=== PATIENT | male | born 1955 | race African-American/Black ===

== ENCOUNTER 2018-12-08 11:23 | Inpatient (IN) | payer BC, OTHER ==
[2018-12-08 11:59] LABS: BASO % 0.9 % (0-2.0); EOS % 1.8 % (0-4.5); HEMATOCRIT 37.5 % (35.4-49); HEMOGLOBIN 12.4 GM/dL (11.7-16.9); LYMPH % 23.1 % (8-40); MCH 29.3 pg (25.7-33.7); MCHC 33.2 g/dl (32.0-35.9); MEAN CELL VOLUME 88.2 fl (80-96); MEAN PLT VOLUME 7.6 fl (7.5-11.1); MONO % 7.1 % (3.8-10.2); NEUT % 67.1 % (42.8-82.8); PLATELET COUNT 308 K/MM3 (134-434); RBC 4.25 M/mm3 (4.00-5.60); RDW 15.7 % (11.9-15.9); WHITE BLOOD COUNT 5.6 K/mm3 (4.0-10.0)
--- NOTE | 2018-12-08 12:01 | PDOC ---
History of Present Illness - General Chief Complaint: CVA/TIA Stated Complaint: LT HAND NUMBNESS Time Seen by Provider: 12/08/18 11:42 - History of Present Illness Initial Comments: 12/08/18 11:53 63 yo M with h/o HTN, HLD who p/w right hand tingling. Patient reports acute onset of left hand tingling (12/07/18) when driving car. Denies h/o similar presentation. Denies weakness in ext. No other complaints. Compliant with home medications. Patient denies DELONG, vision change, palpitations, cough, wheezing, orthopena, PND , leg swelling/pain, N/V, F,C, CP, SOB, urinary complaints, hematuria, BPR, abdominal pain, diarrhea, constipation, lightheadedness, weakness. PMHx: as noted above ROS: as noted SHx: Denies Etoh, IVDA, tobacco use Allergies: NKDA Past History - Past Medical History Allergies/Adverse Reactions: Allergies Allergy/AdvReac Type Severity Reaction Status Date / Time No Known Allergies Allergy Verified 12/08/18 11:25 Home Medications: Ambulatory Orders Atorvastatin Ca [Lipitor] 10 mg PO HS 12/08/18 Furosemide [Lasix] 20 mg PO DAILY 12/08/18 Metoprolol Succinate 200 mg PO DAILY 12/08/18 Nifedipine [Nifedipine ER] 60 mg PO DAILY 12/08/18 COPD: No HTN: Yes Hypercholesterolemia: Yes Other medical history: on lasix for edema BLE - Immunization History Immunization Up to Date: Yes - Suicide/Smoking/Psychosocial Hx Smoking History: Never smoked Hx Alcohol Use: No Drug/Substance Use Hx: No Review of Systems - Review of Systems Comments:: 12/08/18 11:55 GENERAL/CONSTITUTIONAL: No fever or chills. No weakness. HEAD, EYES, EARS, NOSE AND THROAT: No change in vision. No ear pain or discharge. No sore throat. CARDIOVASCULAR: No chest pain or shortness of breath RESPIRATORY: No cough, wheezing, or hemoptysis. GASTROINTESTINAL: No nausea, vomiting, diarrhea or constipation. GENITOURINARY: No dysuria, frequency, or change in urination. MUSCULOSKELETAL: hand tingling. No joint or muscle swelling or pain. No neck or back pain. SKIN: No rash NEUROLOGIC:+ Change in sensation of left hand. No headache, vertigo, loss of consciousness. ENDOCRINE: No increased thirst. No abnormal weight change HEMATOLOGIC/LYMPHATIC: No anemia, easy bleeding, or history of blood clots. ALLERGIC/IMMUNOLOGIC: No hives or skin allergy. *Physical Exam - Vital Signs Last Vital Signs Temp Pulse Resp BP Pulse Ox 98.4 F 77 18 218/108 H 98 12/08/18 11:25 12/08/18 11:25 12/08/18 11:25 12/08/18 11:25 12/08/18 11:25 - Physical Exam Comments: 12/08/18 11:55 GENERAL: Awake, alert, and fully oriented, in no acute distress HEAD: No signs of trauma, normocephalic, atraumatic EYES: PERRLA, EOMI, sclera anicteric, conjunctiva clear ENT: Auricles normal inspection, hearing grossly normal, nares patent, oropharynx clear without exudates. Moist mucosa NECK: Normal ROM, supple, no lymphadenopathy, JVD, or masses LUNGS: No distress, speaks full sentences, clear to auscultation bilaterally HEART: Regular rate and rhythm, normal S1 and S2, no murmurs, rubs or gallops, peripheral pulses normal and equal bilaterally. ABDOMEN: Soft, nontender, normoactive bowel sounds. No guarding, no rebound. No masses EXTREMITIES : Normal inspection, Normal range of motion, no edema. No clubbing or cyanosis NEUROLOGICAL: Cranial nerves II through XII grossly intact. Normal speech, normal gait, no focal sensorimotor deficits. absent dysmetria on FTN. Nml KWABENA. Neg nystagmus. SKIN: Warm, Dry, normal turgor, no rashes or lesions noted NIH Stroke Scale - Last Known Well Date/Time & Onset Date Last Known Well: 12/08/18 Time Last Known Well: 09:00 - Initial Evaluation Level of consciousness: Alert Ask patient the month and their age: Answers both correctly Ask patient to open & close eyes; make fist and let go: Obeys both correctly Best gaze (horizontal eye movement): Normal Visual field testing: No visual field loss Facial paresis (Show teeth/raise eyebrows/close eyes tight): Normal symmetrical movement Motor Function: Left Arm: Normal Motor Function: Right Arm: Normal (extends arm 90 (or 45) degrees for 10 seconds without drift Motor Function: Left Leg: Normal (extends leg 30 degrees for 5 seconds without drift) Motor Function: Right Leg: Normal (extends leg 30 degrees for 5 seconds without drift) Limb Ataxia: No ataxia Sensory(Use pinprick test arms,legs,trunk,face/side to side): Normal Best language (Describe picture, name items, read sentences): No Aphasia Dysarthria (read several words): Normal articulation Extinction and Inattention: No abnormality - Total Score NIH Stroke Scale Score: 0 tPA Exclusion checklist 3-4.5h - Time Elapsed Date last known well: 12/07/18 Time last known well: 09:00 Elaspsed time: 6 Day(s) and 10 Hour(s) and 12 Minutes - Thrombolytic Therapy Candidate Is patient eligible for thrombolytic therapy: No - Exclusion Criteria 3-4.5 hr SBP greater than 185 or DBP greater than 110mmHg despite tx: Yes Recent IC/spinal surgery,head trauma or stroke<3mos.: No Hx IC hemorrhage, IC neoplasm, AV malformation or aneurysm: No Active internal bleeding: No Blding diathesis(low plt ct, inc PTT,INR>1.7 or use of NOAC): No Symptoms suggest subarachnoid hemorrhage: No CT demonstrates multilobar infarct(>1/3 cerebral hemiphere): No Arterial puncture at noncompressible site in previous 7 days: No Blood glucose concentration less than 50mg/dL (2.7mmol/L): No - Relative Exclusion Criteria 3-4.5 hr Life expectancy <1 yr or severe co-morbid illness: No : No Patient/family refused: No Rapid improvement: No Stroke severity too mild: No Recent acute W[place] (w/in previous 3 months): No Seizure at onset with postictal residual neuro impairments: No Major surgery or serious trauma w/in previous 14 days: No Recent GI or hemorrhage (w/in previous 21 days): No - Add'l Relative Exclusion 3-4.5 hr Age > 80: No Hx of both diabetes AND prior ischemic stroke: No Taking an oral anticoagulant regardless of INR: No NIHSS >25: No - Ineligibility reason(s) Reasons No tPA given: See reason(s) noted above Critical Care Time/MDM Note - Medical Decision Making Note: 12/08/18 11:56 63 yo M with h/o HTN, HLD who p/w left hand tingling in 2nd-3rd palmar digits. BP 218/108, vitals otherwise wnl, AF, A&OX3. Physcial exam unremarkable. Patient LUE neurovascularly intact. Numbness in median nerve distribution. R/o CVA. Low suspicion PAD. Ed Course: 12/08/18 12:47 Laboratory Tests 12/08/18 12/08/18 12/08/18 11:49 11:49 11:56 WBC 5.6 Hgb 12.4 Hct 37.5 Plt Count 308 Sodium 138 Potassium 5.9 H BUN 37.3 H Creatinine 4.4 H Est GFR (CKD-EPI)AfAm 15.52 Random Glucose 125 H Troponin I < 0.02 Urine Color Yellow Urine Protein 3+ H Urine Nitrite Negative Ur Leukocyte Esterase Negative 12/08/18 12:48 EKG with 1st degree AV block, CT 224, intervals otherwise wnl, nml axis. Neg HAYLEY , STD. 12/08/18 12:49 Labetalol 20 mg, Calcium Glu 1000 mg, Insulin 5 U, D50 25 mg 12/08/18 12:[address] Norris answering service. Awiaitng call back 12/08/18 13:[address] Norris. 12/08/18 13:27 Dr. sheldon admits to Dr. Castellaon/Darian Contacted Dr. Farmer answering service. Awaiting call back. 12/08/18 13:[address] Callaway. Admitted to tele. *DC/Admit/Observation/Transfer Diagnosis at time of Disposition: Numbness and tingling in left hand, Hypertensive emergency Acute kidney failure Qualifiers: Acute renal failure type: unspecified Qualified Code(s): N17.9 - Acute kidney failure, unspecified - Discharge Dispostion Condition at time of disposition: Stable Decision to Admit order: Yes - Referrals - Patient Instructions - Post Discharge Activity
[2018-12-08 12:14] LABS: INR 1.05 (0.83-1.09); PROTHROMBIN TIME (PATIENT) 12.4 SEC (9.7-13.0)
[2018-12-08 12:16] LABS: EPI CELLS 2.9 /HPF (0-5/HPF); HYALINE CASTS 6 /lpf (0-8); URINE APPEARANCE CLEAR; URINE BACTERIA 0.8 /hpf (NEGATIVE); URINE BILIRUBIN NEGATIVE (NEGATIVE); URINE COLOR YELLOW; URINE GLUCOSE (UA) NEGATIVE (NEGATIVE); URINE KETONE NEGATIVE (NEGATIVE); URINE LEUK ESTERASE NEGATIVE (NEGATIVE); URINE NITRITE NEGATIVE (NEGATIVE); URINE PROTEIN 3+ (NEGATIVE); URINE RBC 2 /hpf (0-4); URINE UROBILINOGEN 0.2 mg/dL (0.2-1.0); URINE WBC 4 /hpf (0-5)
[2018-12-08 12:28] LABS: ALBUMIN 3.6 g/dl (3.4-5.0); ALK PHOS 97 U/L (45-117); ANION GAP 4 MMOL/L (8-16); BILIRUBIN,TOTAL 0.4 mg/dL (0.2-1); BLOOD UREA NITROGEN 37.3 mg/dL (7-18); CALCIUM 9.7 mg/dL (8.5-10.1); CHLORIDE 113 mmol/L (98-107); CO2 21 mmol/L (21-32); CREATININE 4.4 mg/dL (0.55-1.3); GLUCOSE,RANDOM 125 mg/dL (74-106); POTASSIUM 5.9 mmol/L (3.5-5.1); SGOT/AST 31 U/L (15-37); SGPT/ALT 22 U/L (13-61); SODIUM 138 mmol/L (136-145); TOT PROT 8.2 g/dl (6.4-8.2)
[2018-12-08] MEDS ORDERED: LABETALOL HCL 5 MG/1 ML (100MG/20 ML VIAL) IVPUSH ONE (12:43)
[2018-12-08] MEDS ORDERED: DEXTROSE 50%-WATER - 25 GM/50 ML VIAL IVPUSH ONE (12:44)
[2018-12-08] MEDS ORDERED: CALCIUM GLUCONATE 10% - 1,000 MG/10 ML VIAL IVPUSH ONE (12:44)
[2018-12-08] MEDS ORDERED: INSULIN REGULAR HUMAN 100 UNITS/ML *VIAL IVPUSH ONE (12:44)
[2018-12-08] MEDS ORDERED: DEXTROSE 50%-WATER 25 GM/50 ML DISP.SYRIN ONE (13:10)
[2018-12-08] MEDS ORDERED: CALCIUM GLUCONATE 10% - 1,000 MG/10 ML VIAL ONE (13:10)
[2018-12-08] MEDS ORDERED: LABETALOL HCL 5 MG/1 ML (200MG/40ML VIAL) IVPB ONE (13:11)
--- NOTE | 2018-12-08 13:22 | PDOC ---
Attending Attestation - Resident Resident Name: Pancho Larson - ED Attending Attestation I have performed the following: I have examined & evaluated the patient, The case was reviewed & discussed with the resident, I agree w/resident's findings & plan, Exceptions are as noted - HPI HPI: 12/08/18 12:55 63 M with h/o HTN, HLD presenting to ED with L hand tingling. Pt states that since yesterday, he has had numbness/tingling in his L 2nd and 3rd digits. Denies any weakness. Denies numbness/weakness in any other extremity. Pt denies dizziness. Denies slurred speech. Pt hypertensive to 218/108 in ED. Pt states he is compliant with all his meds. Denies CP/SOB. Denies DELONG/N/V. - Physicial Exam PE: 12/08/18 13:23 "GENERAL: Awake, alert, and fully oriented, in no acute distress. HEAD: No signs of trauma EYES: PERRLA, EOMI, sclera anicteric, conjunctiva clear ENT: Auricles normal inspection, hearing grossly normal, nares patent, oropharynx clear without exudates. Moist mucosa NECK: Nontender, no stepoffs, Normal ROM, supple, no lymphadenopathy, JVD, or masses LUNGS: Breath sounds equal, clear to auscultation bilaterally. No wheezes, and no crackles HEART: Regular rate and rhythm, normal S1 and S2, no murmurs, rubs or gallops ABDOMEN: Soft, nontender, normoactive bowel sounds. No guarding, no rebound. No masses EXTREMITIES: Normal range of motion, no edema. No clubbing or cyanosis. No cords, erythema, or tenderness NEUROLOGICAL: Cranial nerves II through XII intact. 5/5 strength and sensation in all extremities, Normal speech, normal gait, normal cerebellar function SKIN: Warm, Dry, normal turgor, no rashes or lesions noted. - Critical Care Time Total Critical Care Time: 60 Critical Care Statement: The care of this patient involved high complexity decision making to prevent further life threatening deterioration of the patient 's condition and/or to evaluate & treat vital organ system(s) failure or risk of failure. - Medical Decision Making 12/08/18 13:23 63 M with L hand paresthesia. NIHSS 0 at this time. Vitals notable for HTN in ED. Pt states he is compliant with his meds. No DELONG, no CP/SOB. Will r/o end organ damage. - Labs, trop - CT head - Labetalol IV for BP control 12/08/18 13:23 Cr 4.4, pt reports no h/o renal insufficiency K 5.9 Will give Ca, insulin/gluc Consult renal
[2018-12-08] MEDS ORDERED: NIFEdipine E.R 60 MG TABLET (UD) PO SCH (14:00)
--- NOTE | 2018-12-08 14:08 | CON.NEP ---
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 Patient reports acute onset of left hand tingling (04/26) when driving car. found to have BP 218/108 also K 5.9 and s creatinine 4.4 he was told he has kidney disease and was referred to nephrolog 2 weeks ago has h/o of not well controlled BP no sob, no chest pain, leg edema sometimes no foamy urine - Alcohol/Substance Use Hx Alcohol Use: No - Smoking History Smoking history: Never smoked Home Medications - Allergies Allergies/Adverse Reactions: Allergies Allergy/AdvReac Type Severity Reaction Status Date / Time No Known Allergies Allergy Verified 12/08/18 11:25 - Home Medications Home Medications: Ambulatory Orders Atorvastatin Ca [Lipitor] 10 mg PO HS 12/08/18 Furosemide [Lasix] 20 mg PO DAILY 12/08/18 Metoprolol Succinate 200 mg PO DAILY 12/08/18 Nifedipine [Nifedipine ER] 60 mg PO DAILY 12/08/18 Nephrology Consult - Height Height: 5 ft 9 in - Weight Weight: 246 lb - BMI Body Mass Index (BMI): 36.3 - Lab Results CBC,BMP: CBC, BMP 12/08/18 11:49 12/08/18 11:49 Anion Gap: Anion Gap Anion Gap 4 MMOL/L (8-16) L 12/08/18 11:49 - Physical Examination Vital Signs: Vital Signs Temperature 98.4 F 12/08/18 11:25 Pulse Rate 71 12/08/18 13:22 Respiratory Rate 18 12/08/18 13:22 Blood Pressure 173/99 H 12/08/18 13:22 O2 Sat by Pulse Oximetry (%) 98 12/08/18 13:22 Assessment/Plan CBC, BMP 12/08/18 11:49 12/08/18 11:49 1-HTN urgency 2-Advanced Kidney Failure unclear if acute of chronic he has chronic kidney disease history and h/o uncontrolled BP proteinuria noted on u/a may be from high BP 3-Hyperkalemia Plan- renal and bladder sono r/o post renal factors and to check kidney size treat hyperkalemia follow bmo daily urine protein creatinine ratio
--- NOTE | 2018-12-08 14:44 | HP ---
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 Cardiovascular: Yes: HTN, Hyperlipdemia Pulmonary: No: Asthma Gastrointestinal: No: GI Bleed - Smoking History Smoking history: Never smoked - Alcohol/Substance Use Hx Alcohol Use: No Home Medications - Allergies Allergies/Adverse Reactions: Allergies Allergy/AdvReac Type Severity Reaction Status Date / Time No Known Allergies Allergy Verified 12/08/18 11:25 - Home Medications Home Medications: Ambulatory Orders Atorvastatin Ca [Lipitor] 10 mg PO HS 12/08/18 Furosemide [Lasix] 20 mg PO DAILY 12/08/18 Metoprolol Succinate 200 mg PO DAILY 12/08/18 Nifedipine [Nifedipine ER] 60 mg PO DAILY 12/08/18 Review of Systems - Review of Systems Cardiovascular: denies: Chest Pain, Edema Respiratory: denies: SOB Gastrointestinal: denies: Abdominal Pain Genitourinary: reports: No Symptoms Musculoskeletal: reports: Muscle Weakness Neurological: reports: Parasthesia (RIGHT HAND), Weakness (RT ARM). 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) Labs: CBC, BMP 12/08/18 11:49 12/08/18 11:49 Imaging - Results Cat Scan: Report Reviewed Problem List - Problems (1) Hypertensive emergency Assessment/Plan: LABETOLOL 200 TID PROCARDIA 60 CARDIO CONSULT Code(s): I16.1 - HYPERTENSIVE EMERGENCY (2) Numbness and tingling in left hand Assessment/Plan: R/O CVA MRI CAROTID ASA NEURO Code(s): R20.0 - ANESTHESIA OF SKIN; R20.2 - PARESTHESIA OF SKIN (3) Acute kidney failure Assessment/Plan: CHECK BASELINE RENAL US FOLLOW LABS Code(s): N17.9 - ACUTE KIDNEY FAILURE, UNSPECIFIED Qualifiers: Acute renal failure type: unspecified Qualified Code(s): N17.9 - Acute kidney failure, unspecified
[2018-12-08] MEDS ORDERED: LABETALOL HCL 100 MG TABLET (FP) ONE (14:59)
[2018-12-08] MEDS ORDERED: NIFEdipine E.R. 30 MG TABLET (FP) ONE (14:59)
[2018-12-08] MEDS: LABETALOL HCL 200 MG TABLET (FP) PO SCH ×2 (15:01→21:05)
[2018-12-08] MEDS ORDERED: ASPIRIN 325 MG ENTERIC COATED TABLET (FP) PO ONE (15:08)
[2018-12-08] MEDS ORDERED: ASPIRIN 325 MG ENTERIC COATED TABLET (FP) ONE (16:35)
[2018-12-08] MEDS: ATORVASTATIN CA 40 MG TABLET (FP) PO SCH (21:05)
[2018-12-08] MEDS: HEPARIN NA (PORCINE) 5,000 UNITS/ML 1ML VIAL SQ SCH (21:05)
[2018-12-08] MEDS ORDERED: ATORVASTATIN CA 10 MG TABLET (FP) PO SCH (22:00)
[2018-12-08 23:33] VITALS: BMI 35.4
[2018-12-09] MEDS: LABETALOL HCL 200 MG TABLET (FP) PO SCH ×3 (05:44→21:04)
[2018-12-09 07:48] LABS: BASO % 0.5 % (0-2.0); EOS % 2.4 % (0-4.5); HEMATOCRIT 33.9 % (35.4-49); HEMOGLOBIN 11.1 GM/dL (11.7-16.9); LYMPH % 31.5 % (8-40); MCHC 32.8 g/dl (32.0-35.9); MEAN CELL VOLUME 88.4 fl (80-96); MEAN PLT VOLUME 7.6 fl (7.5-11.1); MONO % 8.1 % (3.8-10.2); NEUT % 57.5 % (42.8-82.8); PLATELET COUNT 262 K/MM3 (134-434); RBC 3.83 M/mm3 (4.00-5.60); RDW 15.4 % (11.9-15.9); WHITE BLOOD COUNT 5.2 K/mm3 (4.0-10.0)
[2018-12-09 07:57] LABS: ALBUMIN 3.2 g/dl (3.4-5.0); ALK PHOS 83 U/L (45-117); ANION GAP 7 MMOL/L (8-16); BILIRUBIN,TOTAL 0.3 mg/dL (0.2-1); BLOOD UREA NITROGEN 39.5 mg/dL (7-18); CALCIUM 9.3 mg/dL (8.5-10.1); CHLORIDE 113 mmol/L (98-107); CO2 21 mmol/L (21-32); CREATININE 4.4 mg/dL (0.55-1.3); GLUCOSE,RANDOM 93 mg/dL (74-106); MAGNESIUM 2.2 mg/dL (1.8-2.4); PHOSPHOROUS 3.6 mg/dL (2.5-4.9); SGOT/AST 12 U/L (15-37); SGPT/ALT 17 U/L (13-61); SODIUM 141 mmol/L (136-145); TOT PROT 6.8 g/dl (6.4-8.2)
--- NOTE | 2018-12-09 08:27 | PN ---
Progress Note, Physician - Current Medication List Current Medications: Active Medications Aspirin (Ecotrin -) 81 mg PO DAILY [facility] Atorvastatin Calcium (Lipitor -) 40 mg PO HS [facility] Last Admin: 12/08/18 21:05 Dose: 40 mg Heparin Sodium (Porcine) (Heparin -) 5,000 unit SQ BID [facility] Last Admin: 12/08/18 21:05 Dose: 5,000 unit Labetalol HCl (Normodyne -) 200 mg PO TID [facility] Last Admin: 12/09/18 05:44 Dose: 200 mg Nifedipine (Procardia Xl -) 60 mg PO DAILY [facility] Last Admin: 12/08/18 15:01 Dose: 60 mg - Objective Vital Signs: Vital Signs Temperature 97.9 F 12/09/18 05:46 Pulse Rate 62 12/09/18 05:46 Respiratory Rate 16 12/09/18 05:46 Blood Pressure 179/99 H 12/09/18 05:46 O2 Sat by Pulse Oximetry (%) 98 12/08/18 21:00 Cardiovascular: Yes: Regular Rate and Rhythm Respiratory: Yes: Regular, CTA Bilaterally Gastrointestinal: Yes: Normal Bowel Sounds, Soft Neurological: Yes: Alert, Oriented, Weakness (OF RIGHT UE IMPROVED) Labs: CBC, BMP 12/09/18 06:16 12/09/18 06:00 INR, PTT INR 1.05 (0.83-1.09) 12/08/18 11:49 Problem List - Problems (1) Hypertensive emergency Assessment/Plan: LABETOLOL 200 TID PROCARDIA 60--TO 90 ADD HYDRALAZINE 25 BID CARDIO CONSULT Code(s): I16.1 - HYPERTENSIVE EMERGENCY (2) Numbness and tingling in left hand Assessment/Plan: R/O CVA MRI PENDING CAROTID ASA NEURO Code(s): R20.0 - ANESTHESIA OF SKIN; R20.2 - PARESTHESIA OF SKIN (3) Acute kidney failure Assessment/Plan: CHECK BASELINE RENAL US FOLLOW LABS Code(s): N17.9 - ACUTE KIDNEY FAILURE, UNSPECIFIED Qualifiers: Acute renal failure type: unspecified Qualified Code(s): N17.9 - Acute kidney failure, unspecified
[2018-12-09] MEDS: hydrALAZINE HCL 25 MG TABLET (FP) PO SCH ×2 (09:06→21:04)
[2018-12-09] MEDS: ASPIRIN COATED 81 MG TABLET.EC PO SCH (09:07)
[2018-12-09] MEDS: HEPARIN NA (PORCINE) 5,000 UNITS/ML 1ML VIAL SQ SCH ×2 (09:08→21:04)
[2018-12-09] MEDS: NIFEdipine E.R. 90 MG TABLET (FP) PO SCH (09:08)
--- NOTE | 2018-12-09 12:17 | CON.CARD ---
Consult Consult Specialty:: Cardiology Referred by:: Melody Farmer Reason for Consultation:: Hypertension - History of Present Illness Chief Complaint: Left arm tingling/numbness History of Present Illness: Mr. Palmer is a 63 year old male with a pmhx of htn, hld, and CKD. He was going to ride his bike when developed left hand numbness and weakness. Hannacroix like could not grasp anything. No chest pain, sob, or palpitations. No pnd, orthopnea, or edema. Strength has returned but still some numbness on left hand. Says compliant with meds. Rides his bike few times a week with no complaints. 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 Cardio/Vascular: Yes: HTN, Hyperlipdemia Pulmonary: No: Asthma Gastrointestinal: No: GI Bleed - Alcohol/Substance Use Hx Alcohol Use: No - Smoking History Smoking history: Never smoked Have you smoked in the past 12 months: No Home Medications - Allergies Allergies/Adverse Reactions: Allergies Allergy/AdvReac Type Severity Reaction Status Date / Time No Known Allergies Allergy Verified 12/08/18 11:25 - Home Medications Home Medications: Ambulatory Orders Atorvastatin Ca [Lipitor] 10 mg PO HS 12/08/18 Furosemide [Lasix] 20 mg PO DAILY 12/08/18 Metoprolol Succinate 200 mg PO DAILY 12/08/18 Nifedipine [Nifedipine ER] 60 mg PO DAILY 12/08/18 Vital Signs: Vital Signs Temperature 98.8 F 12/09/18 08:47 Pulse Rate 66 12/09/18 08:47 Respiratory Rate 18 12/09/18 08:47 Blood Pressure 153/97 12/09/18 08:47 O2 Sat by Pulse Oximetry (%) 98 12/08/18 21:00 Constitutional: Yes: No Distress Neck: Yes: Supple Respiratory: Yes: CTA Bilaterally Gastrointestinal: Yes: Normal Bowel Sounds, Soft Cardiovascular: Yes: Regular Rate and Rhythm JVD: No Carotid Bruit: No PMI: Non-Displaced Heart Sounds: Yes: S1, S2 Murmur: No: Systolic Murmur - Other Data Labs, Other Data: CBC, BMP 12/09/18 06:00 12/09/18 06:00 INR, PTT INR 1.05 (0.83-1.09) 12/08/18 11:49 Troponin, BNP 12/08/18 12/08/1819 11:49 16:14 06:00 Troponin I < 0.02 < 0.02 < 0.02 Troponin, BNP 12/08/18 12/08/18 12/09/18 11:49 16:14 06:00 Troponin I < 0.02 < 0.02 < 0.02 Imaging - Results Chest X-ray: Report Reviewed EKG: Image Reviewed Problem List - Problems (1) Hypertensive emergency Code(s): I16.1 - HYPERTENSIVE EMERGENCY Assessment/Plan Mr. Palmer is a 63 year old male with a pmhx of htn, hld, and CKD. He was going to ride his bike when developed left hand numbness and weakness. Hannacroix like could not grasp anything. No chest pain, sob, or palpitations. No pnd, orthopnea, or edema. Strength has returned but still some numbness on left hand. Says compliant with meds. Rides his bike few times a week with no complaints. 1) Left hand numbness/weakness -F/u with neuro regarding work up and consdieration of neuro/cva process CT head no acute m/s/b MRI brain pending Carotids b/l 50-69% stenosis -Ekg: sinus rhythm at 75bpm, 1avb, inferior T wave abnormalities, lvh, poor R wave progression -Monitor on tele -Plan for echocardiogram -Aspirin and statin -Better bp control. Restarted labetalol. Nifedipine increased to 90mg and room to go to 60mg bid if needed. On low dose hydralazine and uptitrate if needed.
--- NOTE | 2018-12-09 12:48 | EKG ---
Test Reason : Blood Pressure : / mmHG Vent. Rate : 075 BPM Atrial Rate : 075 BPM P-R Int : 224 ms QRS Dur : 106 ms QT Int : 388 ms P-R-T Axes : 063 -05 -03 degrees QTc Int : 433 ms SINUS RHYTHM WITH 1ST DEGREE A-V BLOCK MINIMAL VOLTAGE CRITERIA FOR LVH, MAY BE NORMAL VARIANT SEPTAL INFARCT , AGE UNDETERMINED ABNORMAL ECG Confirmed by Oleksandr Rodney MD ([id number]) on 12/09/2018 12:48:18 PM Referred By: Confirmed By:Oleksandr Rodney MD
--- NOTE | 2018-12-09 13:20 | PN ---
Progress Note, Physician History of Present Illness: Pt seen and examined at bedside. He is awake and alert. He denies shortness of breath. He denies dysuria or hematuria. - Current Medication List Current Medications: Active Medications Aspirin (Ecotrin -) 81 mg PO DAILY [facility] Last Admin: 12/09/18 09:07 Dose: 81 mg Atorvastatin Calcium (Lipitor -) 40 mg PO HS [facility] Last Admin: 12/08/18 21:05 Dose: 40 mg Heparin Sodium (Porcine) (Heparin -) 5,000 unit SQ BID [facility] Last Admin: 12/09/18 09:08 Dose: 5,000 unit Hydralazine HCl (Apresoline -) 25 mg PO BID [facility] Last Admin: 12/09/18 09:06 Dose: 25 mg Labetalol HCl (Normodyne -) 200 mg PO TID [facility] Last Admin: 12/09/18 05:44 Dose: 200 mg Nifedipine (Procardia Xl -) 90 mg PO DAILY [facility] Last Admin: 12/09/18 09:08 Dose: 90 mg - Objective Vital Signs: Vital Signs Temperature 98.8 F 12/09/18 08:47 Pulse Rate 66 12/09/18 08:47 Respiratory Rate 18 12/09/18 08:47 Blood Pressure 153/97 12/09/18 08:47 O2 Sat by Pulse Oximetry (%) 98 12/08/18 21:00 Constitutional: Yes: Calm Eyes: Yes: Conjunctiva Clear HENT: Yes: Atraumatic Cardiovascular: Yes: S1, S2 Respiratory: Yes: CTA Bilaterally Gastrointestinal: Yes: Normal Bowel Sounds, Soft Musculoskeletal: Yes: WNL Edema: Yes Edema: LLE: Trace, RLE: Trace Integumentary: Yes: WNL Neurological: Yes: Oriented Psychiatric: Yes: Oriented Labs: CBC, BMP 12/09/18 06:00 12/09/18 06:00 INR, PTT INR 1.05 (0.83-1.09) 12/08/18 11:49 - ....Imaging Ultrasound: Report Reviewed Problem List - Problems (1) CKD (chronic kidney disease) Code(s): N18.9 - CHRONIC KIDNEY DISEASE, UNSPECIFIED (2) Hypertensive emergency Code(s): I16.1 - HYPERTENSIVE EMERGENCY (3) Numbness and tingling in left hand Code(s): R20.0 - ANESTHESIA OF SKIN; R20.2 - PARESTHESIA OF SKIN Assessment/Plan Current Medications Generic Name Dose Route Start Last Admin Trade Name Louise PRN Reason Stop Dose Admin Aspirin 81 mg 12/09/18 10:00 12/09/18 09:07 Ecotrin - PO 81 mg DAILY [facility] Administration Atorvastatin Calcium 40 mg 12/08/18 22:00 12/08/18 21:05 Lipitor - PO 40 mg HS [facility] Administration Heparin Sodium (Porcine) 5,000 unit 12/08/18 22:00 12/09/18 09:08 Heparin - SQ 5,000 unit BID [facility] Administration Hydralazine HCl 25 mg 12/09/18 10:00 12/09/18 09:06 Apresoline - PO 25 mg BID [facility] Administration Labetalol HCl 200 mg 12/08/18 14:00 12/09/18 05:44 Normodyne - PO 200 mg TID [facility] Administration Nifedipine 90 mg 12/09/18 08:30 12/09/18 09:08 Procardia Xl - PO 90 mg DAILY [facility] Administration Impression 1. CKD 2. hyperkalemia 3. htn urgency 4. hld 5. 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
--- NOTE | 2018-12-09 16:10 | ECHO ---
Name: ELIZABETH LEWIS Exam:Adult Echocardiogram Study Date: 12/09/2018 03:14 PM Age: 63 yrs Reason For Study: HTN Height: 69 in Weight: 246 lb BSA: 2.3 m2 MMode/2D Measurements & Calculations IVSd: 1.4 cm Ao root diam: 2.7 cm LVIDd: 4.7 cm LA dimension: 4.0 cm LVIDs: 3.3 cm LVPWd: 1.00 cm EDV(Teich): 101.4 ml LVOT diam: 2.0 cm ESV(Teich): 42.6 ml Doppler Measurements & Calculations MV E max huber: 64.7 cm/sec Ao V2 max: 116.3 cm/sec MV A max huber: 74.5 cm/sec Ao max P.4 mmHg MV E/A: 0.87 Ao V2 mean: 85.3 cm/sec MV dec time: 0.28 sec Ao mean P.2 mmHg Ao V2 VTI: 24.3 cm CARLYN(I,D): 2.2 cm2 CARLYN(V,D): 2.2 cm2 LV V1 max P.9 mmHg SV(LVOT): 54.2 ml LV V1 mean P.9 mmHg LV V1 max: 85.4 cm/sec LV V1 mean: 64.8 cm/sec LV V1 VTI: 18.0 cm TR max huber: 198.7 cm/sec Med Peak E' Huber: 2.7 cm/sec TR max P.8 mmHg Med E/e': 23.7 Lat Peak E' Huber: 5.3 cm/sec Lat E/e': 12.2 Left Ventricle The left ventricle is normal in size. There is moderate concentric left ventricular hypertrophy. Left ventricular systolic function is normal. Ejection Fraction = 55%. Grade I diastolic dysfunction, (abn ormal relaxation pattern). Right Ventricle The right ventricle is normal in size and function. Atria The left atrium is mildly dilated. Right atrial size is normal. Mitral Valve The mitral valve is grossly normal. There is trace mitral regurgitation. Tricuspid Valve The tricuspid valve is not well visualized, but is grossly normal. There was insufficient TR detected to calculate RV systolic pressure. There is trace tricuspid regurgitation. Aortic Valve There is mild aortic sclerosis.;. No hemodynamically significant valvular aortic stenosis. Pulmonic Valve The pulmonic valve is not well visualized. Great Vessels The aortic root is normal size. Pericardium/Pleura Small pericardial effusion (<1cm). Interpretation Summary There is moderate concentric left ventricular hypertrophy. Left ventricular systolic function is normal. The left atrium is mildly dilated. There is trace tricuspid regurgitation. There was insufficient TR detected to calculate RV systolic pressure. No hemodynamically significant valvular aortic stenosis. Grade I diastolic dysfunction, (abnormal relaxation pattern). MD Monico Cordova 12/09/2018 04:10 PM
--- NOTE | 2018-12-09 16:42 | CON.NEURO ---
Consult - History of Present Illness History of Present Illness: 63 M with h/o HTN, HLD presenting to ED with L hand tingling. Pt states that since yesterday, he has had numbness/tingling in his L 2nd and 3rd digits. Denies any weakness. Denies numbness/weakness in any other extremity. Pt denies dizziness. Denies slurred speech. Pt hypertensive to 218/108 in ED. Pt states he is compliant with all his meds. Denies CP/SOB. Denies DELONG/N/V. MRI BRAIN : Impression: Multiple small acute nonhemorrhagic infarcts measuring approximately 3 to 5 mm are noted in the right rowe radiata, frontal lobe centrum semiovale, right precentral gyrus, right middle frontal gyrus with restricted diffusion on diffusion-weighted images, corresponding low signal intensity on ADC. Small peripheral cortical infarcts measuring approximately 4- 5 mm are noted n the right occipital lobe with restrictive changes on diffusion weighted images images, corresponding low signal intensity and ADC. Moderate confluent microangiopathic ischemic changes/gliosis noted in the periventricular , centrum semiovale white matter, subcortical white matter. 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 Cardio/Vascular: Yes: HTN, Hyperlipdemia Pulmonary: No: Asthma Gastrointestinal: No: GI Bleed - Alcohol/Substance Use Hx Alcohol Use: No - Smoking History Smoking history: Never smoked Have you smoked in the past 12 months: No Home Medications - Allergies Allergies/Adverse Reactions: Allergies Allergy/AdvReac Type Severity Reaction Status Date / Time No Known Allergies Allergy Verified 12/08/18 11:25 - Home Medications Home Medications: Ambulatory Orders Atorvastatin Ca [Lipitor] 10 mg PO HS 12/08/18 Furosemide [Lasix] 20 mg PO DAILY 12/08/18 Metoprolol Succinate 200 mg PO DAILY 12/08/18 Nifedipine [Nifedipine ER] 60 mg PO DAILY 12/08/18 Physical Exam-Neuro Vital Signs: Vital Signs Temperature 98.2 F 12/09/18 13:39 Pulse Rate 64 12/09/18 13:39 Respiratory Rate 16 12/09/18 13:39 Blood Pressure 167/92 12/09/18 13:39 O2 Sat by Pulse Oximetry (%) 98 12/08/18 21:00 Labs: CBC, BMP 12/09/18 06:00 12/09/18 06:00 INR, PTT INR 1.05 (0.83-1.09) 12/08/18 11:49 - Neuro Exam Level Of Consciousness: Yes: Alert, Oriented to Person (Left UE drift, no facial , no ataxia, rest WNL ) Imaging - Results MRI: Report Reviewed, Image Reviewed Problem List - Problems (1) CVA (cerebral vascular accident) Code(s): I63.9 - CEREBRAL INFARCTION, UNSPECIFIED (2) Hypertensive emergency Code(s): I16.1 - HYPERTENSIVE EMERGENCY Assessment/Plan 63 M with h/o HTN, HLD presenting to ED with L hand tingling. Pt states that since yesterday, he has had numbness/tingling in his L 2nd and 3rd digits. Denies any weakness. Denies numbness/weakness in any other extremity. Pt denies dizziness. Denies slurred speech. Pt hypertensive to 218/108 in ED. Pt states he is compliant with all his meds. Denies CP/SOB. Denies DELONG/N/V MRI BRAIN : Impression: Multiple small acute nonhemorrhagic infarcts measuring approximately 3 to 5 mm are noted in the right rowe radiata, frontal lobe centrum semiovale, right precentral gyrus, right middle frontal gyrus with restricted diffusion on diffusion-weighted images, corresponding low signal intensity on ADC. Small peripheral cortical infarcts measuring approximately 4- 5 mm are noted n the right occipital lobe with restrictive changes on diffusion weighted images images, corresponding low signal intensity and ADC. Moderate confluent microangiopathic ischemic changes/gliosis noted in the periventricular , centrum semiovale white matter, subcortical white matter. AP : Multifocal cortical infarcts , R; highly suspicious for cardioembolic disease check SAI/ check PFO , holter, Doppler will consider empiric AC depending on above ASA, statin for now, BP 160-180 , reduce by 15% of baseline in first [address] DELAROSA
[2018-12-09] MEDS: ATORVASTATIN CA 40 MG TABLET (FP) PO SCH (21:04)
[2018-12-10] MEDS: LABETALOL HCL 200 MG TABLET (FP) PO SCH ×3 (05:56→21:25)
--- NOTE | 2018-12-10 08:39 | PN ---
Progress Note, Physician - Current Medication List Current Medications: Active Medications Aspirin (Ecotrin -) 81 mg PO DAILY [facility] Last Admin: 12/09/18 09:07 Dose: 81 mg Atorvastatin Calcium (Lipitor -) 40 mg PO HS [facility] Last Admin: 12/09/18 21:04 Dose: 40 mg Heparin Sodium (Porcine) (Heparin -) 5,000 unit SQ BID [facility] Last Admin: 12/09/18 21:04 Dose: 5,000 unit Hydralazine HCl (Apresoline -) 25 mg PO BID [facility] Last Admin: 12/09/18 21:04 Dose: 25 mg Labetalol HCl (Normodyne -) 200 mg PO TID [facility] Last Admin: 12/10/18 05:56 Dose: 200 mg Nifedipine (Procardia Xl -) 90 mg PO DAILY [facility] Last Admin: 12/09/18 09:08 Dose: 90 mg - Objective Vital Signs: Vital Signs Temperature 98.3 F 12/10/18 06:00 Pulse Rate 73 12/10/18 06:00 Respiratory Rate 18 12/10/18 06:00 Blood Pressure 156/98 12/10/18 06:00 O2 Sat by Pulse Oximetry (%) 98 12/09/18 21:00 Cardiovascular: Yes: Regular Rate and Rhythm Respiratory: Yes: Regular, CTA Bilaterally Gastrointestinal: Yes: Normal Bowel Sounds, Soft Labs: CBC, BMP 12/09/18 06:00 12/09/18 06:00 INR, PTT INR 1.05 (0.83-1.09) 12/08/18 11:49 Problem List - Problems (1) Hypertensive emergency Assessment/Plan: LABETOLOL 200 TID PROCARDIA 60--TO 90 ADD HYDRALAZINE 25 BID CARDIO CONSULT Code(s): I16.1 - HYPERTENSIVE EMERGENCY (2) Numbness and tingling in left hand Assessment/Plan: R/O CVA MRI PENDING CAROTID ASA NEURO Code(s): R20.0 - ANESTHESIA OF SKIN; R20.2 - PARESTHESIA OF SKIN (3) Acute kidney failure Assessment/Plan: CHECK BASELINE RENAL US FOLLOW LABS Code(s): N17.9 - ACUTE KIDNEY FAILURE, UNSPECIFIED Qualifiers: Acute renal failure type: unspecified Qualified Code(s): N17.9 - Acute kidney failure, unspecified (4) CVA (cerebral vascular accident) Assessment/Plan: bihemispheric on asa/statin echo noted carotid with stenosis vascular consult Code(s): I63.9 - CEREBRAL INFARCTION, UNSPECIFIED (5) Carotid stenosis Assessment/Plan: vascular consult Code(s): I65.29 - OCCLUSION AND STENOSIS OF UNSPECIFIED CAROTID ARTERY
--- NOTE | 2018-12-10 10:37 | PN ---
Progress Note (short form) - Note Progress Note: 63 M with h/o HTN, HLD presenting to ED with L hand tingling. Pt states that since yesterday, he has had numbness/tingling in his L 2nd and 3rd digits. Denies any weakness. Denies numbness/weakness in any other extremity. Pt denies dizziness. Denies slurred speech. Pt hypertensive to 218/108 in ED. Pt states he is compliant with all his meds. Denies CP/SOB. Denies DELONG/N/V. FU : hand is improved, occ tingling left D1/D2 vascular eval noted MRI BRAIN : Impression: Multiple small acute nonhemorrhagic infarcts measuring approximately 3 to 5 mm are noted in the right rowe radiata, frontal lobe centrum semiovale, right precentral gyrus, right middle frontal gyrus with restricted diffusion on diffusion-weighted images, corresponding low signal intensity on ADC. Small peripheral cortical infarcts measuring approximately 4- 5 mm are noted n the right occipital lobe with restrictive changes on diffusion weighted images images, corresponding low signal intensity and ADC. Moderate confluent microangiopathic ischemic changes/gliosis noted in the periventricular , centrum semiovale white matter, subcortical white matter. 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 Cardio/Vascular: Yes: HTN, Hyperlipdemia Pulmonary: No: Asthma Gastrointestinal: No: GI Bleed - Alcohol/Substance Use Hx Alcohol Use: No - Smoking History Smoking history: Never smoked Have you smoked in the past 12 months: No Home Medications - Allergies Allergies/Adverse Reactions: Allergies Allergy/AdvReac Type Severity Reaction Status Date / Time No Known Allergies Allergy Verified 12/08/18 11:25 - Home Medications Home Medications: Ambulatory Orders Atorvastatin Ca [Lipitor] 10 mg PO HS 12/08/18 Furosemide [Lasix] 20 mg PO DAILY 12/08/18 Metoprolol Succinate 200 mg PO DAILY 12/08/18 Nifedipine [Nifedipine ER] 60 mg PO DAILY 12/08/18 Physical Exam-Neuro Vital Signs: Vital Signs Temperature 98.3 F 12/10/18 06:00 Pulse Rate 73 12/10/18 06:00 Respiratory Rate 18 12/10/18 06:00 Blood Pressure 156/98 12/10/18 06:00 O2 Sat by Pulse Oximetry (%) 98 12/09/18 21:00 Labs: CBCD WBC 5.6 K/mm3 (4.0-10.0) 12/08/18 11:49 RBC 4.25 M/mm3 (4.00-5.60) 12/08/18 11:49 Hgb 12.4 GM/dL (11.7-16.9) 12/08/18 11:49 Hct 37.5 % (35.4-49) 12/08/18 11:49 MCV 88.2 fl (80-96) 12/08/18 11:49 MCHC 33.2 g/dl (32.0-35.9) 12/08/18 11:49 RDW 15.7 % (11.9-15.9) 12/08/18 11:49 Plt Count 308 K/MM3 (134-434) 12/08/18 11:49 MPV 7.6 fl (7.5-11.1) 12/08/18 11:49 CMP Sodium 141 mmol/L (136-145) 12/09/18 06:00 Potassium 5.0 mmol/L (3.5-5.1) 12/09/18 06:00 Chloride 113 mmol/L (98-107) H 12/09/18 06:00 Carbon Dioxide 21 mmol/L (21-32) 12/09/18 06:00 Anion Gap 7 MMOL/L (8-16) L 12/09/18 06:00 BUN 39.5 mg/dL (7-18) H 12/09/18 06:00 Creatinine 4.4 mg/dL (0.55-1.3) H 12/09/18 06:00 Calcium 9.3 mg/dL (8.5-10.1) 12/09/18 06:00 Total Bilirubin 0.3 mg/dL (0.2-1) 12/09/18 06:00 AST 12 U/L (15-37) L 12/09/18 06:00 ALT 17 U/L (13-61) 12/09/18 06:00 Alkaline Phosphatase 83 U/L (45-117) 12/09/18 06:00 Total Protein 6.8 g/dl (6.4-8.2) 12/09/18 06:00 Albumin 3.2 g/dl (3.4-5.0) L 12/09/18 06:00 - Neuro Exam Level Of Consciousness: Yes: Alert, Oriented to Person (Left UE drift, no facial , no ataxia, rest WNL ) Imaging - Results MRI: Report Reviewed, Image Reviewed Problem List - Problems (1) CVA (cerebral vascular accident) Code(s): I63.9 - CEREBRAL INFARCTION, UNSPECIFIED (2) Hypertensive emergency Code(s): I16.1 - HYPERTENSIVE EMERGENCY Assessment/Plan 63 M with h/o HTN, HLD presenting to ED with L hand tingling. Pt states that since yesterday, he has had numbness/tingling in his L 2nd and 3rd digits. Denies any weakness. Denies numbness/weakness in any other extremity. Pt denies dizziness. Denies slurred speech. Pt hypertensive to 218/108 in ED. Pt states he is compliant with all his meds. Denies CP/SOB. Denies DELONG/N/V MRI BRAIN : Impression: Multiple small acute nonhemorrhagic infarcts measuring approximately 3 to 5 mm are noted in the right rowe radiata, frontal lobe centrum semiovale, right precentral gyrus, right middle frontal gyrus with restricted diffusion on diffusion-weighted images, corresponding low signal intensity on ADC. Small peripheral cortical infarcts measuring approximately 4- 5 mm are noted n the right occipital lobe with restrictive changes on diffusion weighted images images, corresponding low signal intensity and ADC. Moderate confluent microangiopathic ischemic changes/gliosis noted in the periventricular , centrum semiovale white matter, subcortical white matter. AP : Multifocal cortical infarcts , R; highly suspicious for cardioembolic disease vs artery to artery embolism MRA head and Neck -ordered check SAI/ check PFO , holter, will consider empiric AC depending on above ASA, statin for now, BP control DR DELAROSA Problem List - Problems (1) CVA (cerebral vascular accident) Code(s): I63.9 - CEREBRAL INFARCTION, UNSPECIFIED (2) Hypertensive emergency Code(s): I16.1 - HYPERTENSIVE EMERGENCY
[2018-12-10] MEDS: ASPIRIN COATED 81 MG TABLET.EC PO SCH (10:42)
[2018-12-10] MEDS: NIFEdipine E.R. 90 MG TABLET (FP) PO SCH (10:43)
[2018-12-10] MEDS: HEPARIN NA (PORCINE) 5,000 UNITS/ML 1ML VIAL SQ SCH ×2 (10:44→21:25)
[2018-12-10] MEDS: hydrALAZINE HCL 25 MG TABLET (FP) PO SCH ×2 (10:44→21:25)
[2018-12-10 12:53] LABS: BLOOD UREA NITROGEN 45.7 mg/dL (7-18); CALCIUM 9.4 mg/dL (8.5-10.1); CREATININE 4.5 mg/dL (0.55-1.3)
--- NOTE | 2018-12-10 13:00 | PN ---
Progress Note, Physician History of Present Illness: Pt seen and examined at bedside. He is awake and alert. he denies shortness of breath. - Current Medication List Current Medications: Active Medications Aspirin (Ecotrin -) 81 mg PO DAILY [facility] Last Admin: 12/10/18 10:42 Dose: 81 mg Atorvastatin Calcium (Lipitor -) 40 mg PO HS [facility] Last Admin: 12/09/18 21:04 Dose: 40 mg Heparin Sodium (Porcine) (Heparin -) 5,000 unit SQ BID [facility] Last Admin: 12/10/18 10:44 Dose: 5,000 unit Hydralazine HCl (Apresoline -) 25 mg PO BID [facility] Last Admin: 12/10/18 10:44 Dose: 25 mg Labetalol HCl (Normodyne -) 200 mg PO TID [facility] Last Admin: 12/10/18 05:56 Dose: 200 mg Nifedipine (Procardia Xl -) 90 mg PO DAILY [facility] Last Admin: 12/10/18 10:43 Dose: 90 mg - Objective Vital Signs: Vital Signs Temperature 97.5 F L 12/10/18 09:00 Pulse Rate 70 12/10/18 09:00 Respiratory Rate 18 12/10/18 09:00 Blood Pressure 158/103 H 12/10/18 09:00 O2 Sat by Pulse Oximetry (%) 98 12/09/18 21:00 Constitutional: Yes: Calm Eyes: Yes: Conjunctiva Clear HENT: Yes: Atraumatic Neck: Yes: Supple Cardiovascular: Yes: S1, S2 Respiratory: Yes: CTA Bilaterally Gastrointestinal: Yes: Soft Genitourinary: Yes: WNL Musculoskeletal: Yes: WNL Edema: Yes Edema: LLE: Trace, RLE: Trace Neurological: Yes: Oriented Psychiatric: Yes: Oriented Labs: CBC, BMP 12/09/18 06:00 12/10/18 12:00 INR, PTT INR 1.05 (0.83-1.09) 12/08/18 11:49 Problem List - Problems (1) CKD (chronic kidney disease) Code(s): N18.9 - CHRONIC KIDNEY DISEASE, UNSPECIFIED (2) Hypertensive emergency Code(s): I16.1 - HYPERTENSIVE EMERGENCY (3) Numbness and tingling in left hand Code(s): R20.0 - ANESTHESIA OF SKIN; R20.2 - PARESTHESIA OF SKIN Assessment/Plan Current Medications Generic Name Dose Route Start Last Admin Trade Name Louise PRN Reason Stop Dose Admin Aspirin 81 mg 12/09/18 10:00 12/10/18 10:42 Ecotrin - PO 81 mg DAILY [facility] Administration Atorvastatin Calcium 40 mg 12/08/18 22:00 12/09/18 21:04 Lipitor - PO 40 mg HS [facility] Administration Heparin Sodium (Porcine) 5,000 unit 12/08/18 22:00 12/10/18 10:44 Heparin - SQ 5,000 unit BID [facility] Administration Hydralazine HCl 25 mg 12/09/18 10:00 12/10/18 10:44 Apresoline - PO 25 mg BID [facility] Administration Labetalol HCl 200 mg 12/08/18 14:00 12/10/18 05:56 Normodyne - PO 200 mg TID [facility] Administration Nifedipine 90 mg 12/09/18 08:30 12/10/18 10:43 Procardia Xl - PO 90 mg DAILY [facility] Administration Impression 1. CKD 2. hyperkalemia 3. htn urgency 4. hld 5. proteinuria Plan - follow renal workup - will need outpt follow up - monitor bp - can increase hydralazine to 50 bid if bp elevated - avoid nsaids - discussed future HD and transplant options
--- NOTE | 2018-12-10 13:55 | CONSULT ---
Consult - History of Present Illness History of Present Illness: 63 year old man developed sudden oinset of left hand numbness and tingling lasting 1 minute. No prior history of stroke or TIA. He is right handed. He states his hand is back to normal. 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 Cardio/Vascular: Yes: HTN, Hyperlipdemia Pulmonary: No: Asthma Gastrointestinal: No: GI Bleed - Alcohol/Substance Use Hx Alcohol Use: No - Smoking History Smoking history: Never smoked Have you smoked in the past 12 months: No Home Medications - Allergies Allergies/Adverse Reactions: Allergies Allergy/AdvReac Type Severity Reaction Status Date / Time No Known Allergies Allergy Verified 12/08/18 11:25 - Home Medications Home Medications: Ambulatory Orders Atorvastatin Ca [Lipitor] 10 mg PO HS 12/08/18 Furosemide [Lasix] 20 mg PO DAILY 12/08/18 Metoprolol Succinate 200 mg PO DAILY 12/08/18 Nifedipine [Nifedipine ER] 60 mg PO DAILY 12/08/18 Physical Exam Vital Signs: Vital Signs Temperature 97.5 F L 12/10/18 09:00 Pulse Rate 70 12/10/18 09:00 Respiratory Rate 18 12/10/18 09:00 Blood Pressure 158/103 H 12/10/18 09:00 O2 Sat by Pulse Oximetry (%) 98 12/10/18 09:00 Constitutional: Yes: No Distress Eyes: Yes: WNL, EOM Intact HENT: Yes: WNL Neck: Yes: Supple Cardiovascular: Yes: Regular Rate and Rhythm. No: Bruit Respiratory: Yes: Regular Gastrointestinal: Yes: Soft Extremities: Yes: WNL Edema: No Peripheral Pulses WNL: Yes Neurological: Yes: Alert, Oriented, Cran Nerves II-XII Intact ...Motor Strength: WNL Labs: CBC, BMP 12/09/18 06:00 12/10/18 12:00 Imaging - Results Ultrasound: Image Reviewed (Carotid Duplex showed bilateral plaques without severe (>70%) stenosis.) MRI: Report Reviewed (Multiple small infarcts in right cerebral hemisphere) Problem List - Problems (1) CVA (cerebral vascular accident) Code(s): I63.9 - CEREBRAL INFARCTION, UNSPECIFIED (2) Carotid stenosis Assessment/Plan: S/p acute right cerebral TIA with no severe extracranial carotid stenosis on Duplex. Neurology concerned about cardiac source of microemboli. Work-up in progress. No need for vascular intervention for moderate carotid plaques. Medical management with aspirin, Plavix and statin recommended. repeat carotid Duplex in 1 year. Code(s): I65.29 - OCCLUSION AND STENOSIS OF UNSPECIFIED CAROTID ARTERY Qualifiers: Laterality: bilateral Qualified Code(s): I65.23 - Occlusion and stenosis of bilateral carotid arteries
--- NOTE | 2018-12-10 15:37 | PN ---
Progress Note, Physician Chief Complaint: Patient feels well with no complaints Tele: sinus with no events on monitor History of Present Illness: Mr. Palmer is a 63 year old male with a pmhx of htn, hld, and CKD. He was going to ride his bike when developed left hand numbness and weakness. [place] like could not grasp anything. No chest pain, sob, or palpitations. No pnd, orthopnea, or edema. Strength has returned but still some numbness on left hand. Says compliant with meds. Rides his bike few times a week with no complaints. - Current Medication List Current Medications: Active Medications Aspirin (Ecotrin -) 81 mg PO DAILY [facility] Last Admin: 12/10/18 10:42 Dose: 81 mg Atorvastatin Calcium (Lipitor -) 40 mg PO HS [facility] Last Admin: 12/09/18 21:04 Dose: 40 mg Heparin Sodium (Porcine) (Heparin -) 5,000 unit SQ BID [facility] Last Admin: 12/10/18 10:44 Dose: 5,000 unit Hydralazine HCl (Apresoline -) 25 mg PO BID [facility] Last Admin: 12/10/18 10:44 Dose: 25 mg Labetalol HCl (Normodyne -) 200 mg PO TID [facility] Last Admin: 12/10/18 14:10 Dose: 200 mg Nifedipine (Procardia Xl -) 90 mg PO DAILY [facility] Last Admin: 12/10/18 10:43 Dose: 90 mg - Objective Vital Signs: Vital Signs Temperature 98.8 F 12/10/18 13:57 Pulse Rate 73 12/10/18 13:57 Respiratory Rate 16 12/10/18 13:57 Blood Pressure 165/105 H 12/10/18 13:57 O2 Sat by Pulse Oximetry (%) 98 12/10/18 09:00 Constitutional: Yes: No Distress Neck: Yes: Supple Cardiovascular: Yes: Regular Rate and Rhythm, S1, S2. No: JVD Respiratory: Yes: CTA Bilaterally Gastrointestinal: Yes: Soft Edema: No Labs: CBC, BMP 12/09/18 06:00 12/10/18 12:00 INR, PTT INR 1.05 (0.83-1.09) 12/08/18 11:49 Problem List - Problems (1) Hypertensive emergency Code(s): I16.1 - HYPERTENSIVE EMERGENCY Assessment/Plan Mr. Palmer is a 63 year old male with a pmhx of htn, hld, and CKD. He was going to ride his bike when developed left hand numbness and weakness. [place] like could not grasp anything. No chest pain, sob, or palpitations. No pnd, orthopnea, or edema. Strength has returned but still some numbness on left hand. Says compliant with meds. Rides his bike few times a week with no complaints. 1) Left hand numbness/weakness -F/u with neuro regarding work up and consdieration of neuro/cva process CT head no acute m/s/b MRI brain pending Carotids b/l 50-69% stenosis -Ekg: sinus rhythm at 75bpm, 1avb, inferior T wave abnormalities, lvh, poor R wave progression -Echocardiogram with normal LVEF, mod LVH, no significant valve disease -Aspirin and statin -Better bp control. Restarted labetalol. Nifedipine increased to 90mg and room to go to 60mg bid if needed. On low dose hydralazine. Likely needs increase in regimen. Woud abide by neuro recs regarding how fast to lower. Would likely consider increase in hydralazine next. -Given MRI findings f/u with neuro team whether patient should be on senior living AC. Would likely plan for senior living monitor/loop recorder as an outpatient.
[2018-12-10] MEDS: ATORVASTATIN CA 40 MG TABLET (FP) PO SCH (21:25)
[2018-12-11] MEDS: LABETALOL HCL 200 MG TABLET (FP) PO SCH ×3 (06:25→22:15)
[2018-12-11 08:53] LABS: ALBUMIN 3.3 g/dl (3.4-5.0); BILIRUBIN,TOTAL 0.4 mg/dL (0.2-1); CALCIUM 9.3 mg/dL (8.5-10.1); CREATININE 4.7 mg/dL (0.55-1.3); POTASSIUM 4.9 mmol/L (3.5-5.1); TOT PROT 7.3 g/dl (6.4-8.2)
[2018-12-11] MEDS: HEPARIN NA (PORCINE) 5,000 UNITS/ML 1ML VIAL SQ SCH (09:30)
[2018-12-11] MEDS: hydrALAZINE HCL 25 MG TABLET (FP) PO SCH ×2 (09:30→22:15)
[2018-12-11] MEDS: ASPIRIN COATED 81 MG TABLET.EC PO SCH (09:31)
[2018-12-11] MEDS: NIFEdipine E.R. 90 MG TABLET (FP) PO SCH (09:31)
[2018-12-11 09:40] LABS: RATIO URIN PROTEIN/URIN CREAT 0.75 MG/DL
--- NOTE | 2018-12-11 10:10 | PN ---
Progress Note, Physician History of Present Illness: 63 M with h/o HTN, HLD presenting to ED with L hand tingling. Pt states that since yesterday, he has had numbness/tingling in his L 2nd and 3rd digits. Denies any weakness. Denies numbness/weakness in any other extremity. Pt denies dizziness. Denies slurred speech. Pt hypertensive to 218/108 in ED. Pt states he is compliant with all his meds. Denies CP/SOB. Denies DELONG/N/V. FU : hand strength is improved occ tingling left D1/D2 vascular eval noted MRI BRAIN : Impression: Multiple small acute nonhemorrhagic infarcts measuring approximately 3 to 5 mm are noted in the right rowe radiata, frontal lobe centrum semiovale, right precentral gyrus, right middle frontal gyrus with restricted diffusion on diffusion-weighted images, corresponding low signal intensity on ADC. Small peripheral cortical infarcts measuring approximately 4- 5 mm are noted n the right occipital lobe with restrictive changes on diffusion weighted images images, corresponding low signal intensity and ADC. Moderate confluent microangiopathic ischemic changes/gliosis noted in the periventricular , centrum semiovale white matter, subcortical white matter. Dopplers : BL carotid stenosis 50-69% BL - Current Medication List Current Medications: Active Medications Aspirin (Ecotrin -) 81 mg PO DAILY [facility] Last Admin: 12/11/18 09:31 Dose: 81 mg Atorvastatin Calcium (Lipitor -) 40 mg PO HS [facility] Last Admin: 12/10/18 21:25 Dose: 40 mg Heparin Sodium (Porcine) (Heparin -) 5,000 unit SQ BID [facility] Last Admin: 12/11/18 09:30 Dose: 5,000 unit Hydralazine HCl (Apresoline -) 25 mg PO BID [facility] Last Admin: 12/11/18 09:30 Dose: 25 mg Labetalol HCl (Normodyne -) 200 mg PO TID [facility] Last Admin: 12/11/18 06:25 Dose: 200 mg Nifedipine (Procardia Xl -) 90 mg PO DAILY [facility] Last Admin: 12/11/18 09:31 Dose: 90 mg - Objective Vital Signs: Vital Signs Temperature 98.1 F 12/11/18 06:00 Pulse Rate 73 12/11/18 06:00 Respiratory Rate 18 12/11/18 06:00 Blood Pressure 165/96 12/11/18 06:00 O2 Sat by Pulse Oximetry (%) 99 12/10/18 20:30 Labs: CBC, BMP 12/09/18 06:00 12/11/18 06:45 INR, PTT INR 1.05 (0.83-1.09) 12/08/18 11:49 Problem List - Problems (1) CVA (cerebral vascular accident) Code(s): I63.9 - CEREBRAL INFARCTION, UNSPECIFIED (2) Hypertensive emergency Code(s): I16.1 - HYPERTENSIVE EMERGENCY Assessment/Plan 63 M with h/o HTN, HLD presenting to ED with L hand tingling. Pt states that since yesterday, he has had numbness/tingling in his L 2nd and 3rd digits. Denies any weakness. Denies numbness/weakness in any other extremity. Pt denies dizziness. Denies slurred speech. Pt hypertensive to 218/108 in ED. Pt states he is compliant with all his meds. Denies CP/SOB. Denies DELONG/N/V MRI BRAIN : Impression: Multiple small acute nonhemorrhagic infarcts measuring approximately 3 to 5 mm are noted in the right rowe radiata, frontal lobe centrum semiovale, right precentral gyrus, right middle frontal gyrus with restricted diffusion on diffusion-weighted images, corresponding low signal intensity on ADC. Small peripheral cortical infarcts measuring approximately 4- 5 mm are noted n the right occipital lobe with restrictive changes on diffusion weighted images images, corresponding low signal intensity and ADC. Moderate confluent microangiopathic ischemic changes/gliosis noted in the periventricular , centrum semiovale white matter, subcortical white matter. AP : Multifocal cortical infarcts , R MCA and R [employer] terrirtoies ; highly suspicious for cardioembolic disease vs less likely artery to artery embolism MRA head and Neck -ordered Echo/Dopplers reviewed will need Loop, but would favor empiric AC in this scenario left message with cardiology Dc planning , neuro stable DR DELAROSA
[2018-12-11] MEDS ORDERED: HEPARIN NA (PORCINE) 5,000 UNITS/ML 1ML VIAL IVPUSH PRN ×2 (10:24)
[2018-12-11 11:25] LABS: HEMOGLOBIN 11.3 GM/dL (11.7-16.9); MCH 28.9 pg (25.7-33.7); MCHC 32.2 g/dl (32.0-35.9); MEAN CELL VOLUME 89.7 fl (80-96); MEAN PLT VOLUME 8.2 fl (7.5-11.1); PLATELET COUNT 280 K/MM3 (134-434); RDW 15.6 % (11.9-15.9); WHITE BLOOD COUNT 4.6 K/mm3 (4.0-10.0)
[2018-12-11] MEDS: HEPARIN - 25,000 UNIT in SODIUM CHLORIDE 495 ML IV SCH (12:51)
--- NOTE | 2018-12-11 13:31 | PN ---
Progress Note, Physician History of Present Illness: Pt seen and examined at bedside. He is awake and alert. he denies shortness of breath. - Current Medication List Current Medications: Active Medications Aspirin (Ecotrin -) 81 mg PO DAILY [facility] Last Admin: 12/11/18 09:31 Dose: 81 mg Atorvastatin Calcium (Lipitor -) 40 mg PO HS [facility] Last Admin: 12/10/18 21:25 Dose: 40 mg Heparin Sodium (Porcine) (Heparin -) 1,000 unit IVPUSH PRN PRN PRN Reason: Heparin Heparin Sodium (Porcine) (Heparin -) 5,000 unit IVPUSH PRN PRN PRN Reason: Heparin Hydralazine HCl (Apresoline -) 25 mg PO BID [facility] Last Admin: 12/11/18 09:30 Dose: 25 mg Heparin Sodium (Porcine) 25, (000 unit/ Sodium Chloride) 500 mls @ 16 mls/hr IV TITR [facility]; Protocol Last Admin: 12/11/18 12:51 Dose: 800 unit/hr, 16 mls/hr Labetalol HCl (Normodyne -) 200 mg PO TID [facility] Last Admin: 12/11/18 13:01 Dose: 200 mg Nifedipine (Procardia Xl -) 90 mg PO DAILY [facility] Last Admin: 12/11/18 09:31 Dose: 90 mg Warfarin Sodium (Coumadin -) 10 mg PO DAILY@1800 [facility] - Objective Vital Signs: Vital Signs Temperature 98.1 F 12/11/18 10:00 Pulse Rate 69 12/11/18 10:00 Respiratory Rate 16 12/11/18 10:00 Blood Pressure 157/91 12/11/18 10:00 O2 Sat by Pulse Oximetry (%) 69 L 12/11/18 09:00 Constitutional: Yes: Calm Eyes: Yes: Conjunctiva Clear HENT: Yes: Atraumatic Neck: Yes: Supple Cardiovascular: Yes: S1, S2 Respiratory: Yes: CTA Bilaterally Gastrointestinal: Yes: Soft, Abdomen, Obese Genitourinary: Yes: WNL Musculoskeletal: Yes: WNL Edema: LLE: Trace, RLE: Trace Neurological: Yes: Oriented Psychiatric: Yes: Oriented Labs: CBC, BMP 12/11/18 11:00 12/11/18 06:45 INR, PTT INR 1.05 (0.83-1.09) 12/08/18 11:49 Problem List - Problems (1) CKD (chronic kidney disease) Code(s): N18.9 - CHRONIC KIDNEY DISEASE, UNSPECIFIED (2) Hypertensive emergency Code(s): I16.1 - HYPERTENSIVE EMERGENCY (3) Numbness and tingling in left hand Code(s): R20.0 - ANESTHESIA OF SKIN; R20.2 - PARESTHESIA OF SKIN Assessment/Plan Current Medications Generic Name Dose Route Start Last Admin Trade Name Freq PRN Reason Stop Dose Admin Aspirin 81 mg 12/09/18 10:00 12/11/18 09:31 Ecotrin - PO 81 mg DAILY [facility] Administration Atorvastatin Calcium 40 mg 12/08/18 22:00 12/10/18 21:25 Lipitor - PO 40 mg HS [facility] Administration Heparin Sodium (Porcine) 1,000 unit 12/11/18 10:24 Heparin - IVPUSH PRN PRN Heparin Heparin Sodium (Porcine) 5,000 unit 12/11/18 10:24 Heparin - IVPUSH PRN PRN Heparin Hydralazine HCl 25 mg 12/09/18 10:00 12/11/18 09:30 Apresoline - PO 25 mg BID [facility] Administration Heparin Sodium (Porcine) 25, 500 mls @ 16 mls/hr 12/11/18 10:30 12/11/18 12: 51 000 unit/ Sodium Chloride IV 800 unit/hr TITR [facility] 16 mls/hr Administration Protocol 800 UNIT/HR Labetalol HCl 200 mg 12/08/18 14:00 12/11/18 13:01 Normodyne - PO 200 mg TID [facility] Administration Nifedipine 90 mg 12/09/18 08:30 12/11/18 09:31 Procardia Xl - PO 90 mg DAILY [facility] Administration Warfarin Sodium 10 mg 12/11/18 18:00 Coumadin - PO DAILY@1800 [facility] Laboratory Tests 12/08/18 12/09/18 12/11/18 11:56 06:00 06:45 Urine Protein 3+ H Urine Blood Trace Protein/Creatinin Ratio [place] Screen Positive H [place] Homogeneous Pattern 1:160 H c-ANCA Pending Proteinase 3 (PR3) Pending p-ANCA Pending Atypical p-ANCA Pending Myeloperoxidase Ab Pending Double Strand DNA Ab Pending Glomerular Base Memb Ab Pending 12/11/18 07:00 Urine Protein Urine Blood Protein/Creatinin Ratio 0.750 [place] Screen [place] Homogeneous Pattern c-ANCA Proteinase 3 (PR3) p-ANCA Atypical p-ANCA Myeloperoxidase Ab Double Strand DNA Ab Glomerular Base Memb Ab Impression 1. CKD 2. hyperkalemia 3. htn urgency 4. hld 5. proteinuria 6. positive mallorie Plan - renal workup in progress - mallorie is positive - discussed kidney biopsy with pt, will need better bp control. Also pt will need to be off of asa for 7 days before biopsy. - cardio input appreciated - monitor bp - discussed future HD and transplant options
--- NOTE | 2018-12-11 14:04 | PN ---
Progress Note, Physician Chief Complaint: patient seen and examined says left hand tingling is much less decreased strenght in left hand - Current Medication List Current Medications: Active Medications Aspirin (Ecotrin -) 81 mg PO DAILY [facility] Last Admin: 12/11/18 09:31 Dose: 81 mg Atorvastatin Calcium (Lipitor -) 40 mg PO HS [facility] Last Admin: 12/10/18 21:25 Dose: 40 mg Heparin Sodium (Porcine) (Heparin -) 1,000 unit IVPUSH PRN PRN PRN Reason: Heparin Heparin Sodium (Porcine) (Heparin -) 5,000 unit IVPUSH PRN PRN PRN Reason: Heparin Hydralazine HCl (Apresoline -) 25 mg PO BID [facility] Last Admin: 12/11/18 09:30 Dose: 25 mg Heparin Sodium (Porcine) 25, (000 unit/ Sodium Chloride) 500 mls @ 16 mls/hr IV TITR [facility]; Protocol Last Admin: 12/11/18 12:51 Dose: 800 unit/hr, 16 mls/hr Labetalol HCl (Normodyne -) 200 mg PO TID [facility] Last Admin: 12/11/18 13:01 Dose: 200 mg Nifedipine (Procardia Xl -) 90 mg PO DAILY [facility] Last Admin: 12/11/18 09:31 Dose: 90 mg Warfarin Sodium (Coumadin -) 10 mg PO DAILY@1800 [facility] - Objective Vital Signs: Vital Signs Temperature 98.1 F 12/11/18 10:00 Pulse Rate 69 12/11/18 10:00 Respiratory Rate 16 12/11/18 10:00 Blood Pressure 157/91 12/11/18 10:00 O2 Sat by Pulse Oximetry (%) 69 L 12/11/18 09:00 Constitutional: Yes: Calm Cardiovascular: Yes: Regular Rate and Rhythm, S1, S2 Respiratory: Yes: CTA Bilaterally Gastrointestinal: Yes: Normal Bowel Sounds, Soft Neurological: Yes: Tingling Labs: CBC, BMP 12/11/18 11:00 12/11/18 06:45 INR, PTT INR 1.05 (0.83-1.09) 12/08/18 11:49 Problem List - Problems (1) CKD (chronic kidney disease) Assessment/Plan: renal on board monitor renal function will need biopsy in futurre Code(s): N18.9 - CHRONIC KIDNEY DISEASE, UNSPECIFIED (2) Numbness and tingling in left hand Assessment/Plan: on couamdin to get dose tonight iv heparin drip MRI noted for embolic changes aspirin and statin Code(s): R20.0 - ANESTHESIA OF SKIN; R20.2 - PARESTHESIA OF SKIN (3) Hypertensive emergency Assessment/Plan: BP better controlled hydralazine bid increase as needed labetolol nifedipine dose increased as well Code(s): I16.1 - HYPERTENSIVE EMERGENCY
[2018-12-11 14:24] LABS: INR 1.01 (0.83-1.09); PROTHROMBIN TIME (PATIENT) 11.9 SEC (9.7-13.0)
--- NOTE | 2018-12-11 16:24 | PN ---
Progress Note, Physician Chief Complaint: Patient feels well with no complaints Tele: sinus with no events on monitor History of Present Illness: Mr. Palmer is a 63 year old male with a pmhx of htn, hld, and CKD. He was going to ride his bike when developed left hand numbness and weakness. Gail like could not grasp anything. No chest pain, sob, or palpitations. No pnd, orthopnea, or edema. Strength has returned but still some numbness on left hand. Says compliant with meds. Rides his bike few times a week with no complaints. - Current Medication List Current Medications: Active Medications Aspirin (Ecotrin -) 81 mg PO DAILY [facility] Last Admin: 12/11/18 09:31 Dose: 81 mg Atorvastatin Calcium (Lipitor -) 40 mg PO HS [facility] Last Admin: 12/10/18 21:25 Dose: 40 mg Heparin Sodium (Porcine) (Heparin -) 1,000 unit IVPUSH PRN PRN PRN Reason: Heparin Heparin Sodium (Porcine) (Heparin -) 5,000 unit IVPUSH PRN PRN PRN Reason: Heparin Hydralazine HCl (Apresoline -) 25 mg PO BID [facility] Last Admin: 12/11/18 09:30 Dose: 25 mg Heparin Sodium (Porcine) 25, (000 unit/ Sodium Chloride) 500 mls @ 16 mls/hr IV TITR [facility]; Protocol Last Admin: 12/11/18 12:51 Dose: 800 unit/hr, 16 mls/hr Labetalol HCl (Normodyne -) 200 mg PO TID [facility] Last Admin: 12/11/18 13:01 Dose: 200 mg Nifedipine (Procardia Xl -) 90 mg PO DAILY [facility] Last Admin: 12/11/18 09:31 Dose: 90 mg Warfarin Sodium (Coumadin -) 10 mg PO DAILY@1800 [facility] - Objective Vital Signs: Vital Signs Temperature 97.8 F 12/11/18 14:33 Pulse Rate 70 12/11/18 14:33 Respiratory Rate 16 12/11/18 14:33 Blood Pressure 154/100 12/11/18 14:33 O2 Sat by Pulse Oximetry (%) 69 L 12/11/18 09:00 Constitutional: Yes: No Distress Neck: Yes: Supple Cardiovascular: Yes: Regular Rate and Rhythm, S1, S2. No: JVD, Murmur Respiratory: Yes: CTA Bilaterally Gastrointestinal: Yes: Soft Edema: No Labs: CBC, BMP 12/11/18 11:00 12/11/18 06:45 INR, PTT INR 1.01 (0.83-1.09) 12/11/18 13:52 Problem List - Problems (1) Hypertensive emergency Code(s): I16.1 - HYPERTENSIVE EMERGENCY Assessment/Plan Mr. Palmer is a 63 year old male with a pmhx of htn, hld, and CKD. He was going to ride his bike when developed left hand numbness and weakness. Gail like could not grasp anything. No chest pain, sob, or palpitations. No pnd, orthopnea, or edema. Strength has returned but still some numbness on left hand. Says compliant with meds. Rides his bike few times a week with no complaints. 1) Left hand numbness/weakness -F/u with neuro regarding work up and consdieration of neuro/cva process CT head no acute m/s/b MRI brain pending Carotids b/l 50-69% stenosis -Ekg: sinus rhythm at 75bpm, 1avb, inferior T wave abnormalities, lvh, poor R wave progression -Echocardiogram with normal LVEF, mod LVH, no significant valve disease -statin -Better bp control. Restarted labetalol. Nifedipine increased to 90mg and room to go to 60mg bid if needed. Would increase hydralazine to 50mg -As per neuro, MRI findings are very concerning for afib. Neuro recs to start AC empirically. Can start either apixaban or coumadin. Will make appt for patient with arrhythmia service at [facility] for evaluation of loop recorder placement
[2018-12-11] MEDS: WARFARIN NA 10 MG TABLET (FP) PO SCH (17:37)
[2018-12-11] MEDS: ATORVASTATIN CA 40 MG TABLET (FP) PO SCH (22:15)
--- NOTE | 2018-12-11 23:27 | HOSP ---
Subjective - Review of Symptoms Events since last encounter: Hospitalist Encounter Notified by the RN to call Imaging second crusher regarding MRA of Neck, Head done tonight Called Imaging second crusher and spoke with social service manager who wanted to confirm, that I have access to the report, at this time unable to download MRA of neck, verbal report was given- which indicated 85% Stenosis right ICA, 75% Stenosis of the left ICA. 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 MRA Head- Normal study of the cerebral arteries Patient is currently on Heparin Drip Notified Dr. Covarrubias of MRA results Physical Examination Vital Signs: Vital Signs Temperature 97.6 F 12/11/18 18:00 Pulse Rate 72 12/11/18 18:00 Respiratory Rate 16 12/11/18 18:00 Blood Pressure 161/89 12/11/18 18:00 O2 Sat by Pulse Oximetry (%) 69 L 12/11/18 09:00 Labs: CBC, BMP 12/11/18 11:00 12/11/18 06:45
[2018-12-12] MEDS: LABETALOL HCL 200 MG TABLET (FP) PO SCH ×3 (06:23→21:59)
[2018-12-12 08:30] LABS: INR 1.03 (0.83-1.09); PROTHROMBIN TIME (PATIENT) 12.1 SEC (9.7-13.0)
--- NOTE | 2018-12-12 08:40 | PN ---
Progress Note (short form) - Note Progress Note: No new events. States left hand is unchanged. Exam is stable. MRA without contrast reported as severe stenosis both ICA. This conflicts with Duplex findings and will need to be confirmed. Due to renal insufficiency IV contrast cannot be used for CTA or angiogram. I would discharge patient on anticoagulation as per Neurology and repeat carotid Duplex with transcranial Doppler in an accredited vascular lab. If severe stenosis is seen on the right side, carotid intervention with endarterectomy or stent will need to be considered. Patient instructed to call my office to schedule scan and follow-up. Problem List - Problems (1) CVA (cerebral vascular accident) Code(s): I63.9 - CEREBRAL INFARCTION, UNSPECIFIED (2) Carotid stenosis Code(s): I65.29 - OCCLUSION AND STENOSIS OF UNSPECIFIED CAROTID ARTERY Qualifiers: Laterality: bilateral Qualified Code(s): I65.23 - Occlusion and stenosis of bilateral carotid arteries
--- NOTE | 2018-12-12 09:09 | PN ---
Progress Note (short form) - Note Progress Note: 63 M with h/o HTN, HLD presenting to ED with L hand tingling. Pt states that since yesterday, he has had numbness/tingling in his L 2nd and 3rd digits. Denies any weakness. Denies numbness/weakness in any other extremity. Pt denies dizziness. Denies slurred speech. Pt hypertensive to 218/108 in ED. Pt states he is compliant with all his meds. Denies CP/SOB. Denies DELONG/N/V. FU : MRA noted and spoke to cardiology and reviewed vascular note hand strength is improved occ tingling left D1/D2 MRI BRAIN : Impression: Multiple small acute nonhemorrhagic infarcts measuring approximately 3 to 5 mm are noted in the right rowe radiata, frontal lobe centrum semiovale, right precentral gyrus, right middle frontal gyrus with restricted diffusion on diffusion-weighted images, corresponding low signal intensity on ADC. Small peripheral cortical infarcts measuring approximately 4- 5 mm are noted n the right occipital lobe with restrictive changes on diffusion weighted images images, corresponding low signal intensity and ADC. Moderate confluent microangiopathic ischemic changes/gliosis noted in the periventricular , centrum semiovale white matter, subcortical white matter. Dopplers : BL carotid stenosis 50-69% BL MRA : IMPRESSION: Severe stenosis of the origins of the right internal carotid and external carotid arteries at the carotid bifurcation (75-85%). Moderate stenosis of the origin of the left internal carotid artery (50-60%) Severe stenosis of the origin of the left external carotid artery (75-85%). Clinical information: CVA. 3-D [id number] images were obtained through the arterial intracranial circulation. There is normal antegrade flow of the vertebrals, basilar and internal carotid arteries. No aneurysm is seen arising from [place]. No major branch cutoff is seen and there is no arteriovenous malformation. The medium-sized arteries could not be properly resolved suggestion of moderate narrowing of a right MCA branch distal to the right MCA bifurcation.. - Current Medication List Current Medications: Active Medications Aspirin (Ecotrin -) 81 mg PO DAILY [facility] Last Admin: 12/11/18 09:31 Dose: 81 mg Atorvastatin Calcium (Lipitor -) 40 mg PO HS [facility] Last Admin: 12/10/18 21:25 Dose: 40 mg Heparin Sodium (Porcine) (Heparin -) 5,000 unit SQ BID [facility] Last Admin: 12/11/18 09:30 Dose: 5,000 unit Hydralazine HCl (Apresoline -) 25 mg PO BID [facility] Last Admin: 12/11/18 09:30 Dose: 25 mg Labetalol HCl (Normodyne -) 200 mg PO TID [facility] Last Admin: 12/11/18 06:25 Dose: 200 mg Nifedipine (Procardia Xl -) 90 mg PO DAILY [facility] Last Admin: 12/11/18 09:31 Dose: 90 mg - Objective Vital Signs: Vital Signs Temperature 98.1 F 12/12/18 06:00 Pulse Rate 70 12/12/18 06:00 Respiratory Rate 18 12/12/18 06:00 Blood Pressure 157/100 12/12/18 06:00 O2 Sat by Pulse Oximetry (%) 99 12/11/18 21:00 Labs: CBC, BMP 12/09/18 06:00 12/11/18 06:45 INR, PTT INR 1.05 (0.83-1.09) 12/08/18 11:49 Problem List - Problems (1) CVA (cerebral vascular accident) Code(s): I63.9 - CEREBRAL INFARCTION, UNSPECIFIED (2) Hypertensive emergency Code(s): I16.1 - HYPERTENSIVE EMERGENCY Assessment/Plan 63 M with h/o HTN, HLD presenting to ED with L hand tingling. Pt states that since yesterday, he has had numbness/tingling in his L 2nd and 3rd digits. Denies any weakness. Denies numbness/weakness in any other extremity. Pt denies dizziness. Denies slurred speech. Pt hypertensive to 218/108 in ED. Pt states he is compliant with all his meds. Denies CP/SOB. Denies DELONG/N/V MRI BRAIN : Impression: Multiple small acute nonhemorrhagic infarcts measuring approximately 3 to 5 mm are noted in the right rowe radiata, frontal lobe centrum semiovale, right precentral gyrus, right middle frontal gyrus with restricted diffusion on diffusion-weighted images, corresponding low signal intensity on ADC. Small peripheral cortical infarcts measuring approximately 4- 5 mm are noted n the right occipital lobe with restrictive changes on diffusion weighted images images, corresponding low signal intensity and ADC. Moderate confluent microangiopathic ischemic changes/gliosis noted in the periventricular , centrum semiovale white matter, subcortical white matter. 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
[2018-12-12] MEDS: NIFEdipine E.R. 90 MG TABLET (FP) PO SCH (09:25)
[2018-12-12] MEDS: hydrALAZINE HCL 25 MG TABLET (FP) PO SCH ×2 (09:25→21:59)
[2018-12-12] MEDS: ASPIRIN COATED 81 MG TABLET.EC PO SCH (09:26)
--- NOTE | 2018-12-12 13:01 | PN ---
Progress Note, Physician Chief Complaint: No complaints Sinus on tele History of Present Illness: Mr. Palmer is a 63 year old male with a pmhx of htn, hld, and CKD. He was going to ride his bike when developed left hand numbness and weakness. [place] like could not grasp anything. No chest pain, sob, or palpitations. No pnd, orthopnea, or edema. Strength has returned but still some numbness on left hand. Says compliant with meds. Rides his bike few times a week with no complaints. - Current Medication List Current Medications: Active Medications Aspirin (Ecotrin -) 81 mg PO DAILY [facility] Last Admin: 12/12/18 09:26 Dose: 81 mg Atorvastatin Calcium (Lipitor -) 40 mg PO HS [facility] Last Admin: 12/11/18 22:15 Dose: 40 mg Heparin Sodium (Porcine) (Heparin -) 1,000 unit IVPUSH PRN PRN PRN Reason: Heparin Last Admin: 12/11/18 22:24 Dose: 1,000 unit Heparin Sodium (Porcine) (Heparin -) 5,000 unit IVPUSH PRN PRN PRN Reason: Heparin Hydralazine HCl (Apresoline -) 50 mg PO BID [facility] Heparin Sodium (Porcine) 25, (000 unit/ Sodium Chloride) 500 mls @ 16 mls/hr IV TITR [facility]; Protocol Last Titration: 12/11/18 22:24 Dose: 900 unit/hr, 18 mls/hr Labetalol HCl (Normodyne -) 200 mg PO TID [facility] Last Admin: 12/12/18 06:23 Dose: 200 mg Nifedipine (Procardia Xl -) 90 mg PO DAILY [facility] Last Admin: 12/12/18 09:25 Dose: 90 mg Warfarin Sodium (Coumadin -) 10 mg PO DAILY@1800 [facility] Last Admin: 12/11/18 17:37 Dose: 10 mg - Objective Vital Signs: Vital Signs Temperature 98.1 F 12/12/18 06:00 Pulse Rate 70 12/12/18 06:00 Respiratory Rate 18 12/12/18 06:00 Blood Pressure 157/100 12/12/18 06:00 O2 Sat by Pulse Oximetry (%) 99 12/11/18 21:00 Constitutional: Yes: No Distress Neck: Yes: Supple Cardiovascular: Yes: Regular Rate and Rhythm, S1, S2. No: JVD, Murmur Respiratory: Yes: CTA Bilaterally Gastrointestinal: Yes: Soft Edema: No Labs: CBC, BMP 12/11/18 11:00 12/11/18 06:45 INR, PTT INR 1.03 (0.83-1.09) 12/12/18 06:10 Problem List - Problems (1) Hypertensive emergency Code(s): I16.1 - HYPERTENSIVE EMERGENCY Assessment/Plan Mr. Palmer is a 63 year old male with a pmhx of htn, hld, and CKD. He was going to ride his bike when developed left hand numbness and weakness. [place] like could not grasp anything. No chest pain, sob, or palpitations. No pnd, orthopnea, or edema. Strength has returned but still some numbness on left hand. Says compliant with meds. Rides his bike few times a week with no complaints. 1) Left hand numbness/weakness -F/u with neuro regarding work up and consdieration of neuro/cva process CT head no acute m/s/b MRI brain pending Carotids b/l 50-69% stenosis -Ekg: sinus rhythm at 75bpm, 1avb, inferior T wave abnormalities, lvh, poor R wave progression -Echocardiogram with normal LVEF, mod LVH, no significant valve disease -statin -Better bp control. Restarted labetalol. Nifedipine increased to 90mg and on hydralazine to 50mg Would consider increasing nifedipine to 60mg bid. Than if needs additional increase labetalol as room with HR. -As per neuro, MRI findings are very concerning for afib and also MRA with significant carotid stenosis so neuro prefers to treat patient with anticoagulation. Will plan for possible loop recorder to monitor for afib as outpatient. Spoke to the arrhythmia service at [facility] and they will contact patient next week for an appointment loop recorder placement evaluation.
--- NOTE | 2018-12-12 13:16 | PN ---
Progress Note, Physician History of Present Illness: Pt seen and examined at bedside. He is awake and appears comfortable. He denies shortness of breath. He denies dysuria or hematuria. - Current Medication List Current Medications: Active Medications Aspirin (Ecotrin -) 81 mg PO DAILY [facility] Last Admin: 12/12/18 09:26 Dose: 81 mg Atorvastatin Calcium (Lipitor -) 40 mg PO HS [facility] Last Admin: 12/11/18 22:15 Dose: 40 mg Heparin Sodium (Porcine) (Heparin -) 1,000 unit IVPUSH PRN PRN PRN Reason: Heparin Last Admin: 12/11/18 22:24 Dose: 1,000 unit Heparin Sodium (Porcine) (Heparin -) 5,000 unit IVPUSH PRN PRN PRN Reason: Heparin Hydralazine HCl (Apresoline -) 50 mg PO BID [facility] Heparin Sodium (Porcine) 25, (000 unit/ Sodium Chloride) 500 mls @ 16 mls/hr IV TITR [facility]; Protocol Last Titration: 12/11/18 22:24 Dose: 900 unit/hr, 18 mls/hr Labetalol HCl (Normodyne -) 200 mg PO TID [facility] Last Admin: 12/12/18 06:23 Dose: 200 mg Nifedipine (Procardia Xl -) 60 mg PO BID [facility] Warfarin Sodium (Coumadin -) 10 mg PO DAILY@1800 [facility] Last Admin: 12/11/18 17:37 Dose: 10 mg - Objective Vital Signs: Vital Signs Temperature 98.1 F 12/12/18 06:00 Pulse Rate 70 12/12/18 06:00 Respiratory Rate 18 12/12/18 06:00 Blood Pressure 157/100 12/12/18 06:00 O2 Sat by Pulse Oximetry (%) 99 12/11/18 21:00 Constitutional: Yes: Calm Eyes: Yes: Conjunctiva Clear Cardiovascular: Yes: S1, S2 Respiratory: Yes: CTA Bilaterally Gastrointestinal: Yes: Soft, Abdomen, Obese Genitourinary: Yes: WNL Musculoskeletal: Yes: WNL Edema: No Neurological: Yes: Oriented Psychiatric: Yes: Oriented Labs: CBC, BMP 12/11/18 11:00 12/11/18 06:45 INR, PTT INR 1.03 (0.83-1.09) 12/12/18 06:10 Problem List - Problems (1) CKD (chronic kidney disease) Code(s): N18.9 - CHRONIC KIDNEY DISEASE, UNSPECIFIED (2) Hypertensive emergency Code(s): I16.1 - HYPERTENSIVE EMERGENCY (3) Numbness and tingling in left hand Code(s): R20.0 - ANESTHESIA OF SKIN; R20.2 - PARESTHESIA OF SKIN Assessment/Plan Current Medications Generic Name Dose Route Start Last Admin Trade Name Freq PRN Reason Stop Dose Admin Aspirin 81 mg 12/09/18 10:00 12/12/18 09:26 Ecotrin - PO 81 mg DAILY [facility] Administration Atorvastatin Calcium 40 mg 12/08/18 22:00 12/11/18 22:15 Lipitor - PO 40 mg HS [facility] Administration Heparin Sodium (Porcine) 1,000 unit 12/11/18 10:24 12/11/18 22:24 Heparin - IVPUSH 1,000 unit PRN PRN Administration Heparin Heparin Sodium (Porcine) 5,000 unit 12/11/18 10:24 Heparin - IVPUSH PRN PRN Heparin Hydralazine HCl 50 mg 12/12/18 10:35 Apresoline - PO BID [facility] Heparin Sodium (Porcine) 25, 500 mls @ 16 mls/hr 12/11/18 10:30 12/11/18 22: 24 000 unit/ Sodium Chloride IV 900 unit/hr TITR [facility] 18 mls/hr Titration Protocol 800 UNIT/HR Labetalol HCl 200 mg 12/08/18 14:00 12/12/18 06:23 Normodyne - PO 200 mg TID [facility] Administration Nifedipine 60 mg 12/12/18 22:00 Procardia Xl - PO BID [facility] Warfarin Sodium 10 mg 12/11/18 18:00 12/11/18 17:37 Coumadin - PO 10 mg DAILY@1800 [facility] Administration Impression 1. CKD 2. hyperkalemia 3. htn urgency 4. hld 5. proteinuria 6. positive mallorie Plan - follow serologies - unable to do kidney biopsy at this time as he is on AC - discussed with cardio, bp meds adjusted - rheum eval for mallorie - monitor bp - no indication for acute HD at this time
--- NOTE | 2018-12-12 13:16 | PN ---
Progress Note, Physician Chief Complaint: seen and examined BP elevated hydralazine and nifedipne dose increased INR subtherapeutic - Current Medication List Current Medications: Active Medications Aspirin (Ecotrin -) 81 mg PO DAILY [facility] Last Admin: 12/12/18 09:26 Dose: 81 mg Atorvastatin Calcium (Lipitor -) 40 mg PO HS [facility] Last Admin: 12/11/18 22:15 Dose: 40 mg Heparin Sodium (Porcine) (Heparin -) 1,000 unit IVPUSH PRN PRN PRN Reason: Heparin Last Admin: 12/11/18 22:24 Dose: 1,000 unit Heparin Sodium (Porcine) (Heparin -) 5,000 unit IVPUSH PRN PRN PRN Reason: Heparin Hydralazine HCl (Apresoline -) 50 mg PO BID [facility] Heparin Sodium (Porcine) 25, (000 unit/ Sodium Chloride) 500 mls @ 16 mls/hr IV TITR [facility]; Protocol Last Titration: 12/11/18 22:24 Dose: 900 unit/hr, 18 mls/hr Labetalol HCl (Normodyne -) 200 mg PO TID [facility] Last Admin: 12/12/18 06:23 Dose: 200 mg Nifedipine (Procardia Xl -) 60 mg PO BID [facility] Warfarin Sodium (Coumadin -) 10 mg PO DAILY@1800 [facility] Last Admin: 12/11/18 17:37 Dose: 10 mg - Objective Vital Signs: Vital Signs Temperature 98.1 F 12/12/18 06:00 Pulse Rate 70 12/12/18 06:00 Respiratory Rate 18 12/12/18 06:00 Blood Pressure 157/100 12/12/18 06:00 O2 Sat by Pulse Oximetry (%) 99 12/11/18 21:00 Constitutional: Yes: Calm Cardiovascular: Yes: Regular Rate and Rhythm, S1, S2 Respiratory: Yes: CTA Bilaterally Gastrointestinal: Yes: Normal Bowel Sounds, Soft Labs: CBC, BMP 12/11/18 11:00 12/11/18 06:45 INR, PTT INR 1.03 (0.83-1.09) 12/12/18 06:10 Problem List - Problems (1) CKD (chronic kidney disease) Assessment/Plan: renal on board monitor renal function will need biopsy in futurre Code(s): N18.9 - CHRONIC KIDNEY DISEASE, UNSPECIFIED (2) Numbness and tingling in left hand Assessment/Plan: daily INR iv heparin drip to coumadin MRI noted for embolic changes aspirin and statin Code(s): R20.0 - ANESTHESIA OF SKIN; R20.2 - PARESTHESIA OF SKIN (3) Hypertensive emergency Assessment/Plan: hydralazine bid increase to 50mg bid labetolol nifedipine dose increased as well 60mg bid Code(s): I16.1 - HYPERTENSIVE EMERGENCY
[2018-12-12] MEDS: HEPARIN - 25,000 UNIT in SODIUM CHLORIDE 495 ML IV SCH (13:33)
[2018-12-12 15:07] LABS: TOTAL PROTEIN, URINE 187.2 mg/dL (Not Estab.)
--- NOTE | 2018-12-12 15:08 | CONSULT ---
Consult Consult Specialty:: Rheumatology - History of Present Illness History of Present Illness: 63 year old male with PMHx of HTN and hyperlipidemia admitted with episode of numbness and weakness in the left hand and was found to have CKD and positive CYNDIE. HPI. The patient reports he had an episode of numbness and weakness in his left hand. The strength resolved spontaneously, however he still has mild numbness. He is otherwise asymptomatic. He is active and rides his bicycle few times per week and he was unaware taht he has chronic kidney disease. The patient has history of right total knee replacement about 10 years ago. He denies other joint pain, skin rash, oral ulcers, Sicca syndrome, Raynaud's phenomenon shortness of breath, chest pain or fever. On admission his BP was 218/108 and at the present time 155/92. Laboratory work-up revealed a normal CBC, creatinine 4.4 and LFT normal. Urinalysis with protein 3+ and no blood. CYNDIE 1:160 with homogeneous pattern and anti-DNAds negative. ANCA, MPO, MO-3 and GBMAb are pending. MRI of the brain reported with multiple small acute non-hemorrhagic infarcts and moderate confluent microangiopathic ischemic changes/gliosis noted in the periventricular, centrum semiovale white matter, subcortical white matter. MRI of the neck reports with severe stenosis of origin of the right internal and external carotid arteries at the bifurcation, severe stenosis at the origin of the left external carotid artery and moderate stenosis at the origin of the left internal artery. MRA of the brain: rule out moderate narrowing of a right MCA branch distal to bifurcation. 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 Cardio/Vascular: Yes: HTN, Hyperlipdemia Pulmonary: No: Asthma Gastrointestinal: No: GI Bleed - Alcohol/Substance Use Hx Alcohol Use: No - Smoking History Smoking history: Never smoked Have you smoked in the past 12 months: No Home Medications - Allergies Allergies/Adverse Reactions: Allergies Allergy/AdvReac Type Severity Reaction Status Date / Time No Known Allergies Allergy Verified 12/08/18 11:25 - Home Medications Home Medications: Ambulatory Orders Atorvastatin Ca [Lipitor] 10 mg PO HS 12/08/18 Furosemide [Lasix] 20 mg PO DAILY 12/08/18 Metoprolol Succinate 200 mg PO DAILY 12/08/18 Nifedipine [Nifedipine ER] 60 mg PO DAILY 12/08/18 Review of Systems - Review of Systems Constitutional: reports: No Symptoms Eyes: reports: No Symptoms HENT: reports: No Symptoms Neck: reports: No Symptoms Cardiovascular: reports: No Symptoms Respiratory: reports: No Symptoms Gastrointestinal: reports: No Symptoms Musculoskeletal: reports: No Symptoms Integumentary: reports: No Symptoms Neurological: reports: Other (See HPI) Physical Exam Vital Signs: Vital Signs Temperature 97.6 F 12/12/18 10:00 Pulse Rate 64 12/12/18 10:00 Respiratory Rate 20 12/12/18 10:00 Blood Pressure 155/92 12/12/18 10:00 O2 Sat by Pulse Oximetry (%) 100 12/12/18 09:00 Constitutional: Yes: Well Nourished, No Distress Eyes: Yes: WNL HENT: Yes: WNL Neck: Yes: WNL Cardiovascular: Yes: WNL Respiratory: Yes: WNL Gastrointestinal: Yes: WNL Musculoskeletal: Yes: Other (No active joints) Labs: CBC, BMP 12/11/18 11:00 12/11/18 06:45 Laboratory Tests 12/08/18 12/09/18 12/09/18 11:56 06:00 06:00 Calcium Total Bilirubin AST ALT Alkaline Phosphatase Total Protein Albumin M-Sidney % Not observed TSH 1.64 Urine Color Yellow Urine Appearance Clear Urine pH 5.0 Ur Specific [place] 1.013 Urine Protein 3+ H Urine Glucose (UA) Negative Urine Ketones Negative Urine Blood Trace Urine Nitrite Negative Urine Bilirubin Negative Urine Urobilinogen 0.2 Ur Leukocyte Esterase Negative Urine WBC (Auto) 4 Urine RBC (Auto) 2 Urine Casts (Auto) 6 CYNDIE Screen CYNDIE Homogeneous Pattern Double Strand DNA Ab 12/09/18 12/11/18 12/11/18 06:00 06:45 06:45 Calcium 9.3 Total Bilirubin 0.4 AST 13 L ALT 17 Alkaline Phosphatase 90 Total Protein 7.3 Albumin 3.3 L M-Sidney % TSH Urine Color Urine Appearance Urine pH Ur Specific [place] Urine Protein Urine Glucose (UA) Urine Ketones Urine Blood Urine Nitrite Urine Bilirubin Urine Urobilinogen Ur Leukocyte Esterase Urine WBC (Auto) Urine RBC (Auto) Urine Casts (Auto) CYNDIE Screen Positive H CYNDIE Homogeneous Pattern 1:160 H Double Strand DNA Ab <1 Problem List - Problems (1) CYNDIE positive Assessment/Plan: CYNDIE positive and anti-DNAds negative. The patient has no clinical changes suggestive of CTD. Probable false positive test. Plan: Labs: C3, C4 and anti-CHRISTIANO. Will follow ANCA, MPO and PR3. Code(s): R76.8 - OTHER SPECIFIED ABNORMAL IMMUNOLOGICAL FINDINGS IN SERUM (2) CKD (chronic kidney disease) Assessment/Plan: Probable chronic kidney disease related to hypertension. I will follow up labs to R/O CTD. Code(s): N18.9 - CHRONIC KIDNEY DISEASE, UNSPECIFIED
[2018-12-12] MEDS: WARFARIN NA 10 MG TABLET (FP) PO SCH (18:01)
[2018-12-12 19:12] LABS: HEP B CORE AB, TOT Negative (Negative)
[2018-12-12] MEDS: NIFEdipine E.R 60 MG TABLET (UD) PO SCH (21:59)
[2018-12-12] MEDS: ATORVASTATIN CA 40 MG TABLET (FP) PO SCH (21:59)
[2018-12-13] MEDS: LABETALOL HCL 200 MG TABLET (FP) PO SCH ×3 (06:13→21:01)
[2018-12-13 08:33] LABS: HEMATOCRIT 33.8 % (35.4-49); HEMOGLOBIN 11.1 GM/dL (11.7-16.9); MCH 29.1 pg (25.7-33.7); MCHC 32.7 g/dl (32.0-35.9); MEAN CELL VOLUME 88.7 fl (80-96); MEAN PLT VOLUME 8.2 fl (7.5-11.1); PLATELET COUNT 282 K/MM3 (134-434); RBC 3.81 M/mm3 (4.00-5.60); RDW 15.7 % (11.9-15.9); WHITE BLOOD COUNT 6.7 K/mm3 (4.0-10.0)
[2018-12-13 08:57] LABS: BLOOD UREA NITROGEN 52.2 mg/dL (7-18); CALCIUM 9.4 mg/dL (8.5-10.1); CREATININE 4.6 mg/dL (0.55-1.3); POTASSIUM 5.8 mmol/L (3.5-5.1)
[2018-12-13 09:00] LABS: INR 1.17 (0.83-1.09); PROTHROMBIN TIME (PATIENT) 13.8 SEC (9.7-13.0)
[2018-12-13] MEDS: hydrALAZINE HCL 25 MG TABLET (FP) PO SCH ×2 (09:45→21:01)
[2018-12-13] MEDS: NIFEdipine E.R 60 MG TABLET (UD) PO SCH ×2 (09:46→21:02)
[2018-12-13] MEDS: ASPIRIN COATED 81 MG TABLET.EC PO SCH (09:46)
--- NOTE | 2018-12-13 11:02 | PN ---
Progress Note (short form) - Note Progress Note: RENAL pt is awake and alert comfortable says he was admitted with weakness of his left hand pleasant man Last Vital Signs Temp Pulse Resp BP Pulse Ox 98.0 F 75 18 133/73 100 12/13/18 09:10 12/13/18 09:10 12/13/18 09:10 12/13/18 09:10 12/12/18 21:00 lungs clear cvs s1s2 distant abd soft ext +edema, wears compression stockings neuro a+ox3 CBC, BMP 12/13/18 07:00 12/13/18 07:10 Current Medications Generic Name Dose Route Start Last Admin Trade Name Freq PRN Reason Stop Dose Admin Aspirin 81 mg 12/09/18 10:00 12/13/18 09:46 Ecotrin - PO 81 mg DAILY [facility] Administration Atorvastatin Calcium 40 mg 12/08/18 22:00 12/12/18 21:59 Lipitor - PO 40 mg HS [facility] Administration Heparin Sodium (Porcine) 1,000 unit 12/11/18 10:24 12/11/18 22:24 Heparin - IVPUSH 1,000 unit PRN PRN Administration Heparin Heparin Sodium (Porcine) 5,000 unit 12/11/18 10:24 Heparin - IVPUSH PRN PRN Heparin Hydralazine HCl 50 mg 12/12/18 10:35 12/13/18 09:45 Apresoline - PO 50 mg BID [facility] Administration Heparin Sodium (Porcine) 25, 500 mls @ 16 mls/hr 12/11/18 10:30 12/12/18 13: 33 000 unit/ Sodium Chloride IV 900 unit/hr TITR [facility] 18 mls/hr Administration Protocol 800 UNIT/HR Labetalol HCl 200 mg 12/08/18 14:00 12/13/18 06:13 Normodyne - PO 200 mg TID [facility] Administration Nifedipine 60 mg 12/12/18 22:00 12/13/18 09:46 Procardia Xl - PO 60 mg BID [facility] Administration Warfarin Sodium 10 mg 12/11/18 18:00 12/12/18 18:01 Coumadin - PO 10 mg DAILY@1800 [facility] Administration Impression 1. CKD 2. hyperkalemia 3. s/p malignant htn 4. hld 5. proteinuria was 3 plus but only 0.75 was his P/C- does not make sense- maybe the HTN urgency resulted in some proteinuria which is resolving 6. positive mallorie in older man on hydralazine- likely false 7.hyperkalemia 8. 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
[2018-12-13] MEDS ORDERED: SODIUM POLYSTYRENE SULFONATE 15 GM/60 ML BOTTLE PO ONE (11:18)
[2018-12-13] MEDS ORDERED: WARFARIN NA 10 MG TABLET (FP) PO SCH (11:20)
--- NOTE | 2018-12-13 13:20 | PN ---
Progress Note, Physician - Current Medication List Current Medications: Active Medications Aspirin (Ecotrin -) 81 mg PO DAILY [facility] Last Admin: 12/13/18 09:46 Dose: 81 mg Atorvastatin Calcium (Lipitor -) 40 mg PO HS [facility] Last Admin: 12/12/18 21:59 Dose: 40 mg Heparin Sodium (Porcine) (Heparin -) 1,000 unit IVPUSH PRN PRN PRN Reason: Heparin Last Admin: 12/11/18 22:24 Dose: 1,000 unit Heparin Sodium (Porcine) (Heparin -) 5,000 unit IVPUSH PRN PRN PRN Reason: Heparin Hydralazine HCl (Apresoline -) 50 mg PO BID [facility] Last Admin: 12/13/18 09:45 Dose: 50 mg Heparin Sodium (Porcine) 25, (000 unit/ Sodium Chloride) 500 mls @ 16 mls/hr IV TITR [facility]; Protocol Last Admin: 12/12/18 13:33 Dose: 900 unit/hr, 18 mls/hr Labetalol HCl (Normodyne -) 200 mg PO TID [facility] Last Admin: 12/13/18 06:13 Dose: 200 mg Nifedipine (Procardia Xl -) 60 mg PO BID [facility] Last Admin: 12/13/18 09:46 Dose: 60 mg Warfarin Sodium 10 mg/ (Warfarin Sodium 2 mg) 12 mg PO DAILY@1800 [facility] - Objective Vital Signs: Vital Signs Temperature 98.0 F 12/13/18 09:10 Pulse Rate 75 12/13/18 09:10 Respiratory Rate 18 12/13/18 09:10 Blood Pressure 133/73 12/13/18 09:10 O2 Sat by Pulse Oximetry (%) 100 12/12/18 21:00 Cardiovascular: Yes: Regular Rate and Rhythm Respiratory: Yes: Regular, CTA Bilaterally Gastrointestinal: Yes: Normal Bowel Sounds, Soft Labs: CBC, BMP 12/13/18 07:00 12/13/18 07:10 INR, PTT INR 1.17 (0.83-1.09) H 12/13/18 07:50 Problem List - Problems (1) Hypertensive emergency Assessment/Plan: Vital Signs Period Temp Pulse Resp BP Sys/Choi Pulse Ox Last 24 Hr 97.6 F-98.0 F 69-79 16-20 133-176/73-100 100 Orders 12/08/18 14:00 Labetalol HCl [Normodyne -] 200 mg PO TID 12/12/18 10:35 hydrALAZINE HCL [Apresoline -] 50 mg PO BID 12/12/18 22:00 Nifedipine ER [Procardia Xl -] 60 mg PO BID Code(s): I16.1 - HYPERTENSIVE EMERGENCY (2) Numbness and tingling in left hand Code(s): R20.0 - ANESTHESIA OF SKIN; R20.2 - PARESTHESIA OF SKIN (3) Acute kidney failure Code(s): N17.9 - ACUTE KIDNEY FAILURE, UNSPECIFIED Qualifiers: Acute renal failure type: unspecified Qualified Code(s): N17.9 - Acute kidney failure, unspecified (4) CVA (cerebral vascular accident) Assessment/Plan: bihemispheric on asa/statin echo noted carotid with stenosis vascular consult HEPARIN AND COUMADIN Code(s): I63.9 - CEREBRAL INFARCTION, UNSPECIFIED (5) Carotid stenosis Assessment/Plan: vascular consult Code(s): I65.29 - OCCLUSION AND STENOSIS OF UNSPECIFIED CAROTID ARTERY Qualifiers: Laterality: bilateral Qualified Code(s): I65.23 - Occlusion and stenosis of bilateral carotid arteries
[2018-12-13 13:48] LABS: ALBUMIN 3.6 g/dl (3.4-5.0)
[2018-12-13] MEDS ORDERED: PT OWN MED DRAWER 7, Y5N ONE (17:02)
[2018-12-13] MEDS ORDERED: WARFARIN NA 10 MG TABLET (FP) ONE (17:02)
[2018-12-13] MEDS ORDERED: WARFARIN NA 2 MG TABLET (UD) ONE (17:02)
[2018-12-13] MEDS: WARFARIN NA 10 MG, WARFARIN NA 2 MG PO SCH (17:13)
[2018-12-13] MEDS: HEPARIN - 25,000 UNIT in SODIUM CHLORIDE 495 ML IV SCH (17:15)
[2018-12-13] MEDS: ATORVASTATIN CA 40 MG TABLET (FP) PO SCH (21:01)
[2018-12-14] MEDS: LABETALOL HCL 200 MG TABLET (FP) PO SCH ×3 (06:20→22:26)
[2018-12-14 08:10] LABS: HEMATOCRIT 34.4 % (35.4-49); HEMOGLOBIN 11.1 GM/dL (11.7-16.9); MCH 28.8 pg (25.7-33.7); MCHC 32.3 g/dl (32.0-35.9); MEAN CELL VOLUME 89.1 fl (80-96); MEAN PLT VOLUME 8.1 fl (7.5-11.1); PLATELET COUNT 279 K/MM3 (134-434); RBC 3.87 M/mm3 (4.00-5.60); RDW 15.9 % (11.9-15.9)
[2018-12-14 08:37] LABS: BLOOD UREA NITROGEN 52.8 mg/dL (7-18); CALCIUM 9.6 mg/dL (8.5-10.1); CREATININE 4.6 mg/dL (0.55-1.3); POTASSIUM 4.8 mmol/L (3.5-5.1)
[2018-12-14 09:01] LABS: INR 1.6 (0.83-1.09)
[2018-12-14] MEDS: ASPIRIN COATED 81 MG TABLET.EC PO SCH (09:45)
[2018-12-14] MEDS: NIFEdipine E.R 60 MG TABLET (UD) PO SCH ×2 (09:45→22:20)
[2018-12-14] MEDS: hydrALAZINE HCL 25 MG TABLET (FP) PO SCH ×2 (09:46→22:20)
--- NOTE | 2018-12-14 11:08 | PN ---
Progress Note, Physician - Current Medication List Current Medications: Active Medications Aspirin (Ecotrin -) 81 mg PO DAILY [facility] Last Admin: 12/14/18 09:45 Dose: 81 mg Atorvastatin Calcium (Lipitor -) 40 mg PO HS [facility] Last Admin: 12/13/18 21:01 Dose: 40 mg Heparin Sodium (Porcine) (Heparin -) 1,000 unit IVPUSH PRN PRN PRN Reason: Heparin Last Admin: 12/11/18 22:24 Dose: 1,000 unit Heparin Sodium (Porcine) (Heparin -) 5,000 unit IVPUSH PRN PRN PRN Reason: Heparin Hydralazine HCl (Apresoline -) 50 mg PO BID [facility] Last Admin: 12/14/18 09:46 Dose: 50 mg Heparin Sodium (Porcine) 25, (000 unit/ Sodium Chloride) 500 mls @ 16 mls/hr IV TITR [facility]; Protocol Last Admin: 12/13/18 17:15 Dose: 900 unit/hr, 18 mls/hr Labetalol HCl (Normodyne -) 200 mg PO TID [facility] Last Admin: 12/14/18 06:20 Dose: 200 mg Nifedipine (Procardia Xl -) 60 mg PO BID [facility] Last Admin: 12/14/18 09:45 Dose: 60 mg Warfarin Sodium 10 mg/ (Warfarin Sodium 2 mg) 12 mg PO DAILY@1800 [facility] Last Admin: 12/13/18 17:13 Dose: 12 mg - Objective Vital Signs: Vital Signs Temperature 98.8 F 12/14/18 09:40 Pulse Rate 79 12/14/18 09:40 Respiratory Rate 18 12/14/18 09:40 Blood Pressure 157/95 12/14/18 09:40 O2 Sat by Pulse Oximetry (%) 99 12/13/18 21:00 Cardiovascular: Yes: Regular Rate and Rhythm Respiratory: Yes: Regular, CTA Bilaterally Gastrointestinal: Yes: Normal Bowel Sounds, Soft Labs: CBC, BMP 12/14/18 07:10 12/14/18 07:10 INR, PTT INR 1.60 (0.83-1.09) H 12/14/18 07:10 Problem List - Problems (1) Hypertensive emergency Assessment/Plan: Vital Signs Period Temp Pulse Resp BP Sys/Choi Pulse Ox Last 24 Hr 97.3 F-98.8 F 76-86 16-18 142-174/75-95 99 Orders 12/08/18 14:00 Labetalol HCl [Normodyne -] 200 mg PO TID 12/12/18 10:35 hydrALAZINE HCL [Apresoline -] 50 mg PO BID 12/12/18 22:00 Nifedipine ER [Procardia Xl -] 60 mg PO BID Code(s): I16.1 - HYPERTENSIVE EMERGENCY (2) Numbness and tingling in left hand Code(s): R20.0 - ANESTHESIA OF SKIN; R20.2 - PARESTHESIA OF SKIN (3) Acute kidney failure Assessment/Plan: CHECK BASELINE RENAL US FOLLOW LABS Code(s): N17.9 - ACUTE KIDNEY FAILURE, UNSPECIFIED Qualifiers: Acute renal failure type: unspecified Qualified Code(s): N17.9 - Acute kidney failure, unspecified (4) CVA (cerebral vascular accident) Assessment/Plan: bihemispheric on asa/statin echo noted carotid with stenosis vascular consult HEPARIN AND COUMADIN inr 1.6 Code(s): I63.9 - CEREBRAL INFARCTION, UNSPECIFIED (5) Carotid stenosis Assessment/Plan: vascular consult Code(s): I65.29 - OCCLUSION AND STENOSIS OF UNSPECIFIED CAROTID ARTERY Qualifiers: Laterality: bilateral Qualified Code(s): I65.23 - Occlusion and stenosis of bilateral carotid arteries
--- NOTE | 2018-12-14 12:53 | PN ---
Progress Note (short form) - Note Progress Note: RENAL pt is awake and alert comfortable had 2 bms since yesterday Last Vital Signs Temp Pulse Resp BP Pulse Ox 98.8 F 79 18 157/95 99 12/14/18 09:40 12/14/18 09:40 12/14/18 09:40 12/14/18 09:40 12/13/18 21:00 lungs clear cvs s1s2 distant abd soft ext +edema, wears compression stockings neuro a+ox3 CBC, BMP 12/14/18 07:10 12/14/18 07:10 Current Medications Generic Name Dose Route Start Last Admin Trade Name Freq PRN Reason Stop Dose Admin Aspirin 81 mg 12/09/18 10:00 12/14/18 09:45 Ecotrin - PO 81 mg DAILY [facility] Administration Atorvastatin Calcium 40 mg 12/08/18 22:00 12/13/18 21:01 Lipitor - PO 40 mg HS [facility] Administration Heparin Sodium (Porcine) 1,000 unit 12/11/18 10:24 12/11/18 22:24 Heparin - IVPUSH 1,000 unit PRN PRN Administration Heparin Heparin Sodium (Porcine) 5,000 unit 12/11/18 10:24 Heparin - IVPUSH PRN PRN Heparin Hydralazine HCl 50 mg 12/12/18 10:35 12/14/18 09:46 Apresoline - PO 50 mg BID [facility] Administration Heparin Sodium (Porcine) 25, 500 mls @ 16 mls/hr 12/11/18 10:30 12/13/18 17: 15 000 unit/ Sodium Chloride IV 900 unit/hr TITR [facility] 18 mls/hr Administration Protocol 800 UNIT/HR Labetalol HCl 200 mg 12/08/18 14:00 12/14/18 06:20 Normodyne - PO 200 mg TID [facility] Administration Nifedipine 60 mg 12/12/18 22:00 12/14/18 09:45 Procardia Xl - PO 60 mg BID [facility] Administration Warfarin Sodium 10 mg/ 12 mg 12/13/18 18:00 12/13/18 17:13 Warfarin Sodium 2 mg PO 12 mg DAILY@1800 [facility] Administration Impression 1. CKD 2. hyperkalemia 3. s/p malignant htn 4. hld 5. proteinuria was 3 plus but only 0.75 was his P/C- does not make sense- maybe the HTN urgency resulted in some proteinuria which is resolving 6. positive mallorie in older man on hydralazine- likely false 7.hyperkalemia 8. 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
[2018-12-14] MEDS ORDERED: WARFARIN NA 10 MG TABLET (FP) ONE (18:02)
[2018-12-14] MEDS ORDERED: WARFARIN NA 2 MG TABLET (UD) ONE (18:02)
[2018-12-14] MEDS: HEPARIN - 25,000 UNIT in SODIUM CHLORIDE 495 ML IV SCH ×2 (18:05)
[2018-12-14] MEDS: WARFARIN NA 10 MG, WARFARIN NA 2 MG PO SCH (18:07)
[2018-12-14] MEDS: ATORVASTATIN CA 40 MG TABLET (FP) PO SCH (22:20)
[2018-12-15] MEDS: LABETALOL HCL 200 MG TABLET (FP) PO SCH ×2 (07:13→13:49)
[2018-12-15 08:17] LABS: HEMATOCRIT 34.9 % (35.4-49); HEMOGLOBIN 11.3 GM/dL (11.7-16.9); MCH 28.9 pg (25.7-33.7); MCHC 32.5 g/dl (32.0-35.9); MEAN PLT VOLUME 8.5 fl (7.5-11.1); PLATELET COUNT 275 K/MM3 (134-434); RBC 3.92 M/mm3 (4.00-5.60); RDW 15.7 % (11.9-15.9); WHITE BLOOD COUNT 5.6 K/mm3 (4.0-10.0)
[2018-12-15 08:23] LABS: INR 2.26 (0.83-1.09); PROTHROMBIN TIME (PATIENT) 26.9 SEC (9.7-13.0)
[2018-12-15 08:35] LABS: BLOOD UREA NITROGEN 49.7 mg/dL (7-18); CALCIUM 9.4 mg/dL (8.5-10.1); CREATININE 4.7 mg/dL (0.55-1.3); POTASSIUM 4.8 mmol/L (3.5-5.1)
[2018-12-15] MEDS: hydrALAZINE HCL 25 MG TABLET (FP) PO SCH (09:58)
[2018-12-15] MEDS: ASPIRIN COATED 81 MG TABLET.EC PO SCH (09:59)
[2018-12-15] MEDS: NIFEdipine E.R 60 MG TABLET (UD) PO SCH (10:00)
[2018-12-15 10:06] LABS: ANTIGLOMERULAR BASEMENT MEN.AB 3 units (0-20)
--- NOTE | 2018-12-15 11:35 | DS ---
Physical Examination Vital Signs: Vital Signs Temperature 98.0 F 12/15/18 08:15 Pulse Rate 80 12/15/18 08:15 Respiratory Rate 16 12/15/18 08:15 Blood Pressure 158/88 12/15/18 08:15 O2 Sat by Pulse Oximetry (%) 99 12/14/18 21:00 Constitutional: Yes: Calm Cardiovascular: Yes: Regular Rate and Rhythm, S1, S2 Respiratory: Yes: CTA Bilaterally Gastrointestinal: Yes: Normal Bowel Sounds, Soft Neurological: Yes: Alert, Oriented Labs: CBC, BMP 12/15/18 07:10 12/15/18 07:10 Discharge Summary Reason For Visit: HYPERTENSIVE EMERGENCY;ACUTE RENAL FAILURE; Current Active Problems CYNDIE positive (Acute) Acute kidney failure (Acute) CKD (chronic kidney disease) (Acute) CVA (cerebral vascular accident) (Acute) Carotid stenosis (Acute) Hypertensive emergency (Acute) Numbness and tingling in left hand (Acute) Hospital Course: 63 yr old male with h/o HTN came in for left hand tingling found to have levated BP admitted [facility] MRI of brain showed multiple cortical infarcts suspicious of emboli started o nhearpin drip - transition to couamdin renal insufficiency will need mounika lfollow up as outpatient Condition: Stable - Instructions Diet, Activity, Other Instructions: recheck INR in saturday Referrals: Mickey Sanchez MD [Staff Physician] - 1 Week Skyler Covarrubias DO [Staff Physician] - 1 Week (hand tingling follow up) Kyree Dill MD, MD [Primary Care Provider] - 1 Week Disposition: HOME - Home Medications Comprehensive Discharge Medication List: Ambulatory Orders Atorvastatin Ca [Lipitor] 10 mg PO HS 12/08/18 Furosemide [Lasix] 20 mg PO DAILY 12/08/18 Metoprolol Succinate 200 mg PO DAILY 12/08/18 Nifedipine [Nifedipine ER] 60 mg PO DAILY 12/08/18
--- NOTE | 2018-12-15 12:07 | PN ---
Progress Note, Physician History of Present Illness: Pt seen and examined at bedside. He is awake and alert. He denies shortness of breath. - Current Medication List Current Medications: Active Medications Aspirin (Ecotrin -) 81 mg PO DAILY [facility] Last Admin: 12/15/18 09:59 Dose: 81 mg Atorvastatin Calcium (Lipitor -) 40 mg PO HS [facility] Last Admin: 12/14/18 22:20 Dose: 40 mg Heparin Sodium (Porcine) (Heparin -) 1,000 unit IVPUSH PRN PRN PRN Reason: Heparin Last Admin: 12/11/18 22:24 Dose: 1,000 unit Hydralazine HCl (Apresoline -) 50 mg PO BID [facility] Last Admin: 12/15/18 09:58 Dose: 50 mg Labetalol HCl (Normodyne -) 200 mg PO TID [facility] Last Admin: 12/15/18 07:13 Dose: 200 mg Nifedipine (Procardia Xl -) 60 mg PO BID [facility] Last Admin: 12/15/18 10:00 Dose: 60 mg Warfarin Sodium 10 mg/ (Warfarin Sodium 2 mg) 12 mg PO DAILY@1800 [facility] Last Admin: 12/14/18 18:07 Dose: 12 mg - Objective Vital Signs: Vital Signs Temperature 98.0 F 12/15/18 08:15 Pulse Rate 80 12/15/18 08:15 Respiratory Rate 16 12/15/18 08:15 Blood Pressure 158/88 12/15/18 08:15 O2 Sat by Pulse Oximetry (%) 99 12/14/18 21:00 Constitutional: Yes: Calm Eyes: Yes: Conjunctiva Clear HENT: Yes: Atraumatic Neck: Yes: Supple Cardiovascular: Yes: S1, S2 Respiratory: Yes: CTA Bilaterally Gastrointestinal: Yes: Soft, Abdomen, Obese Genitourinary: Yes: WNL Musculoskeletal: Yes: WNL Edema: No Neurological: Yes: Oriented Psychiatric: Yes: Oriented Labs: CBC, BMP 12/15/18 07:10 12/15/18 07:10 INR, PTT INR 2.26 (0.83-1.09) H 12/15/18 07:10 Problem List - Problems (1) CKD (chronic kidney disease) Code(s): N18.9 - CHRONIC KIDNEY DISEASE, UNSPECIFIED (2) Hypertensive emergency Code(s): I16.1 - HYPERTENSIVE EMERGENCY (3) Numbness and tingling in left hand Code(s): R20.0 - ANESTHESIA OF SKIN; R20.2 - PARESTHESIA OF SKIN Assessment/Plan Current Medications Generic Name Dose Route Start Last Admin Trade Name Louise PRN Reason Stop Dose Admin Aspirin 81 mg 12/09/18 10:00 12/15/18 09:59 Ecotrin - PO 81 mg DAILY PAYAM Administration Atorvastatin Calcium 40 mg 12/08/18 22:00 12/14/18 22:20 Lipitor - PO 40 mg HS PAYAM Administration Heparin Sodium (Porcine) 1,000 unit 12/11/18 10:24 12/11/18 22:24 Heparin - IVPUSH 1,000 unit PRN PRN Administration Heparin Hydralazine HCl 50 mg 12/12/18 10:35 12/15/18 09:58 Apresoline - PO 50 mg BID PAYAM Administration Labetalol HCl 200 mg 12/08/18 14:00 12/15/18 07:13 Normodyne - PO 200 mg TID PAYAM Administration Nifedipine 60 mg 12/12/18 22:00 12/15/18 10:00 Procardia Xl - PO 60 mg BID PAYAM Administration Warfarin Sodium 10 mg/ 12 mg 12/13/18 18:00 12/14/18 18:07 Warfarin Sodium 2 mg PO 12 mg DAILY@1800 PAYAM Administration Laboratory Tests 12/09/18 12/11/18 12/11/18 06:00 06:45 06:45 JACQUI M-Sidney Pending MALLORIE Screen Positive H M[place]ORIE Homogeneous Pattern 1:160 H c-ANCA Pending Proteinase 3 (PR3) Pending p-ANCA Pending Atypical p-ANCA Pending Myeloperoxidase Ab Pending Double Strand DNA Ab <1 Glomerular Base Memb Ab 3 Impression 1. CKD 2. hyperkalemia 3. htn urgency 4. hld 5. proteinuria 6. positive mallorie Plan - will need outpt follow up - bp is improving - serologies still pending - kidney biopsy will be challenging as he is anticoagulated - will need cardio follow up - kelme prn for hyperkalemia, low potassium diet - no indication for acute HD at this time
[2018-12-15 13:58] VITALS: BP 140/64; PULSE 84; TEMP 97.2
[2018-12-16 19:09] LABS: ATYPICAL pANCA <1:20 titer (Neg:<1:20); C-ANCA <1:20 titer (Neg:<1:20)
== END 2018-12-15 14:26 | disposition home or self-care (01) | DRG 305 ==
LOC: JER 11:23 → JERBED 12:50 → J4S 20:02
PROVIDERS: ADMIT Family Medicine; ATTEND Family Medicine
DX: I16.1 Hypertensive emergency (principal); N17.9 Acute kidney failure, unspecified; D68.8 Other specified coagulation defects; I65.23 Occlusion and stenosis of bilateral carotid arteries; I12.9 Hypertensive chronic kidney disease with stage 1 through stage 4 chronic kidney disease, or unspecified chronic kidney disease; N18.9 Chronic kidney disease, unspecified; E78.5 Hyperlipidemia, unspecified; E87.5 Hyperkalemia; E66.9 Obesity, unspecified; Z68.34 Body mass index [BMI] 34.0-34.9, adult
CPT/HCPCS: 36415; 70450-TC; 70544-TC; 70547-TC; 70551-TC; 76775-TC; 80048; 80053; 81003; 82040; 82550; 82553; 82565; 82570; 83036; 83516; 83520; 83735; 84100; 84155; 84156; 84157; 84165; 84300; 84443; 84484; 85025; 85027; 85610; 85730; 86038; 86225; 86256; 86704; 86706; 86707; 86708; 86709; 87340; 87522; 93005; 93010; 93306-TC; 93880-TC; 97116-GP; 97161-GP; 99283-25; J1644